=== PATIENT | female | born 1940 | race Caucasian/White ===

== ENCOUNTER 2016-09-06 15:19 | Outpatient (CLI) | payer MEDICARE, OTHER | END 2016-09-06 15:20 | disposition home or self-care (01) | DX: I77.6 Arteritis, unspecified (principal); G43.109 Migraine with aura, not intractable, without status migrainosus ==

== ENCOUNTER 2016-09-10 16:21 | Outpatient (CLI) | payer MEDICARE, OTHER | END 2016-09-10 16:22 | disposition home or self-care (01) | DX: G43.109 Migraine with aura, not intractable, without status migrainosus (principal); I77.6 Arteritis, unspecified ==

== ENCOUNTER 2017-03-11 08:00 | Outpatient (CLI) | payer MEDICARE, OTHER ==
[2017-03-11 19:20] LABS: BASOPHILS # (AUTO) 0.1 10^3/uL (0.0-0.1); BASOPHILS % (AUTO) 1.2 %; EOSINOPHILS # (AUTO) 0.3 10^3/uL (0.0-0.7); EOSINOPHILS % (AUTO) 3.5 %; HCT - HEMATOCRIT 39.9 % (37.0-47.0); HGB - HEMOGLOBIN 13.3 g/dL (12.0-16.0); LYMPHOCYTES # (AUTO) 2.6 10^3/uL (1.5-3.5); LYMPHOCYTES % (AUTO) 33.5 %; MEAN CORPUSCULAR HEMOGLOBIN 28.6 pg (27.0-31.0); MEAN CORPUSCULAR HGB CONC 33.4 g/dL (32.0-36.0); MEAN CORPUSCULAR VOLUME 85.6 fL (81.0-99.0); MEAN PLATELET VOLUME 9.4 fL (7.9-10.8); MONOCYTES # (AUTO) 0.6 10^3/uL (0.0-1.0); NEUTROPHILS # (AUTO) 4.2 10^3/uL (1.5-6.6); NEUTROPHILS % (AUTO) 53.8 %; RED BLOOD COUNT 4.66 10^6/uL (4.20-5.40); RED CELL DISTRIBUTION WIDTH 13.7 % (12.0-15.0); UNCORRECTED WHITE BLOOD COUNT 7.9 x10^3/uL; WHITE BLOOD COUNT 7.9 x10^3/uL (4.8-10.8)
[2017-03-11 19:30] LABS: ALBUMIN/GLOBULIN RATIO 1.6 (1.0-2.2); BILIRUBIN,TOTAL 0.5 mg/dL (0.2-1.0); BUN - BLOOD UREA NITROGEN 16 mg/dL (6-20); CALCIUM 9.2 mg/dL (8.5-10.3); CARBON DIOXIDE - CO2 24 mmol/L (21-32); CHLORIDE 103 mmol/L (101-111); CHOL/HDL RATIO 4.6 (<4.4); CHOLESTEROL 236 mg/dL; CREATININE 0.8 mg/dL (0.4-1.0); GFR - MDRD 70 (>89); GLUCOSE 108 mg/dL (70-100); HDL CHOLESTEROL 51 mg/dL; POTASSIUM 4.1 mmol/L (3.5-5.0); SODIUM 138 mmol/L (135-145); TOTAL PROTEIN 7.1 g/dL (6.7-8.2); TRIGLYCERIDES 157 mg/dL; VLDL CHOLESTEROL 31 mg/dL
== END 2017-03-11 08:01 | disposition home or self-care (01) ==
LOC: LAB.WCP 08:00
PROVIDERS: ATTEND Family Medicine
DX: E78.5 Hyperlipidemia, unspecified (principal); I10 Essential (primary) hypertension; E03.9 Hypothyroidism, unspecified
CPT/HCPCS: 36415; 80053; 80061; 84443; 85025

== ENCOUNTER 2017-08-25 08:00 | Outpatient (CLI) | payer MEDICARE, OTHER ==
[2017-08-25 19:29] LABS: BASOPHILS # (AUTO) 0.1 10^3/uL (0.0-0.1); BASOPHILS % (AUTO) 0.9 %; EOSINOPHILS # (AUTO) 0.2 10^3/uL (0.0-0.7); EOSINOPHILS % (AUTO) 2.9 %; HGB - HEMOGLOBIN 12.8 g/dL (12.0-16.0); LYMPHOCYTES # (AUTO) 2.1 10^3/uL (1.5-3.5); MEAN CORPUSCULAR HEMOGLOBIN 28.2 pg (27.0-31.0); MEAN CORPUSCULAR HGB CONC 32.4 g/dL (32.0-36.0); MEAN CORPUSCULAR VOLUME 86.9 fL (81.0-99.0); MONOCYTES # (AUTO) 0.6 10^3/uL (0.0-1.0); NEUTROPHILS # (AUTO) 4.2 10^3/uL (1.5-6.6); NEUTROPHILS % (AUTO) 58.2 %; PLT - PLATELET COUNT 305 10^3/uL (130-450); RED BLOOD COUNT 4.54 10^6/uL (4.20-5.40); RED CELL DISTRIBUTION WIDTH 13.6 % (12.0-15.0); WHITE BLOOD COUNT 7.1 x10^3/uL (4.8-10.8)
[2017-08-25 19:47] LABS: ALBUMIN 4.1 g/dL (3.2-5.5); ALBUMIN/GLOBULIN RATIO 1.5 (1.0-2.2); ALKALINE PHOSPHATASE 50 IU/L (42-121); ALT ALANINE AMINOTRANSFERASE 15 IU/L (10-60); AST ASPARTATE AMINOTRANSFERASE 16 IU/L (10-42); BILIRUBIN,TOTAL 0.6 mg/dL (0.2-1.0); BUN - BLOOD UREA NITROGEN 23 mg/dL (6-20); CARBON DIOXIDE - CO2 25 mmol/L (21-32); CHLORIDE 105 mmol/L (101-111); CHOL/HDL RATIO 5.4 (<4.4); CHOLESTEROL 279 mg/dL; GFR - MDRD 54 (>89); GLUCOSE 81 mg/dL (70-100); HDL CHOLESTEROL 52 mg/dL; LDL CHOLESTEROL,CALCULATED 183 mg/dL; LDL/HDL RATIO 3.5 (<4.4); SODIUM 138 mmol/L (135-145); TOTAL PROTEIN 6.9 g/dL (6.7-8.2); VLDL CHOLESTEROL 44 mg/dL
== END 2017-08-25 08:01 ==
LOC: LAB.WCP 08:00
PROVIDERS: ATTEND Family Medicine
DX: I10 Essential (primary) hypertension (principal); E78.5 Hyperlipidemia, unspecified; E03.9 Hypothyroidism, unspecified
CPT/HCPCS: 36415; 80053; 80061; 83721; 84443; 85025

== ENCOUNTER 2017-09-01 23:27 | Outpatient (CLI) | payer MEDICARE, OTHER | END 2017-09-01 23:28 | disposition home or self-care (01) | LOC: LAB.WCP 23:27 | PROVIDERS: ATTEND Family Medicine | DX: I73.9 Peripheral vascular disease, unspecified (principal) | CPT/HCPCS: 36415; 85651; 86140 ==

== ENCOUNTER 2017-09-04 16:26 | Outpatient (CLI) | payer MEDICARE, OTHER ==
--- NOTE | 2017-09-05 07:10 | MRI Report ---
EXAM: MRI BRAIN WITHOUT CONTRAST EXAM DATE: 09/04/2017 05:36 PM. CLINICAL HISTORY: Migraine headache. Over the past 2 years patient has experienced changes with visua l disturbances. COMPARISON: MRI brain 09/10/2016. TECHNIQUE: Multiplanar, multisequence T1-weighted and fluid-sensitive MR sequences of the brain were performed. Sequences optimized for routine evaluation. Other: None. IV Contrast: None. FINDINGS: Brain Volume: Normal for age. Parenchyma/Dura: No mass, acute infarct or hemorrhage. There are several scattered nonspecific T2/FLA IR hyperintense foci in the periventricular and deep white matter of both cerebral hemispheres. This appears stable compared to the prior MRI. This likely represents mild chronic microvascular change an d/or migraine phenomenon. Ventricles/Cisterns: No hydrocephalus. No abnormal extra-axial fluid collection or hemorrhage. Orbits: Symmetric and unremarkable. Sella Turcica: Unremarkable. Vasculature: Normal signal flow void is seen in the major arterial structures at the skull base. Sinuses: No acute appearing sinus disease. Bones: No focal pathologic appearing marrow signal changes. Other: No Chiari I malformation. IMPRESSION: 1. No acute intracranial abnormality. No significant change compared to previous MRI brain 09/10/2016. 2. Scattered nonspecific T2/FLAIR hyperintense foci in periventricular and deep white matter of both cerebral hemispheres appear stable. This could represent mild chronic microvascular change and/or magalys lacie phenomenon. 3. No intracranial mass lesion, mass effect, or hydrocephalus. [facility] Referring Provider Line: [phone] SITE ID: [id number]
== END 2017-09-04 16:27 | disposition home or self-care (01) ==
LOC: DI 16:26
PROVIDERS: ATTEND Family Medicine
DX: G43.909 Migraine, unspecified, not intractable, without status migrainosus (principal)
CPT/HCPCS: 70551

== ENCOUNTER 2017-12-01 08:00 | Outpatient (CLI) | payer MEDICARE, OTHER ==
[2017-12-01 19:07] LABS: ALBUMIN/GLOBULIN RATIO 1.3 (1.0-2.2); ALKALINE PHOSPHATASE 59 IU/L (42-121); ALT ALANINE AMINOTRANSFERASE 14 IU/L (10-60); AST ASPARTATE AMINOTRANSFERASE 19 IU/L (10-42); BILIRUBIN,TOTAL 0.7 mg/dL (0.2-1.0); BUN - BLOOD UREA NITROGEN 18 mg/dL (6-20); CALCIUM 9.2 mg/dL (8.5-10.3); CARBON DIOXIDE - CO2 25 mmol/L (21-32); CHLORIDE 106 mmol/L (101-111); CHOL/HDL RATIO 3.2 (<4.4); CHOLESTEROL 194 mg/dL; GFR - MDRD 54 (>89); GLUCOSE 93 mg/dL (70-100); HDL CHOLESTEROL 61 mg/dL; LDL CHOLESTEROL,CALCULATED 100 mg/dL; LDL/HDL RATIO 1.6 (<4.4); SODIUM 139 mmol/L (135-145); TOTAL PROTEIN 7.1 g/dL (6.7-8.2); VLDL CHOLESTEROL 33 mg/dL
== END 2017-12-01 08:01 | disposition home or self-care (01) ==
LOC: LAB.WCP 08:00
PROVIDERS: ATTEND Family Medicine
DX: E78.5 Hyperlipidemia, unspecified (principal)
CPT/HCPCS: 36415; 80053; 80061; 83721

== ENCOUNTER 2018-01-27 14:33 | Observation (INO) | payer MEDICARE, OTHER ==
[2018-01-27] MEDS ORDERED: IOPAMIDOL-300 100 ML VIAL ONE (15:09)
--- NOTE | 2018-01-27 15:09 | ED Physician Documentation ---
History of Present Illness - Stated complaint Stated Complaint: LT SIDED NUMBNESS - Chief complaint Chief Complaint: Neuro - Additonal information Additional information: hx from pt 77 f to ED with L sided SAHNI, lef face and arm numbness, L facial drop, dysarthria and LUE weakness onset 1345 sx are improving has similar sx last Friday and in the past and was dx TIA has been referred to neuro but cannot be seen until April sx are improving spont no blood thinners no hx a fib Review of Systems Constitutional: denies: Fever Eyes: denies: Decreased vision Ears: denies: Loss of hearing (chronic hearing loss L ear) Cardiac: denies: Chest pain / pressure Respiratory: denies: Dyspnea Neurologic: reports: Focal weakness, Numbness, Difficulty speaking Endocrine: denies: Easy bruising / bleeding Immunocompromised: denies: Immunocompromised PD PAST MEDICAL HISTORY - Past Medical History Cardiovascular: High cholesterol Respiratory: None Endocrine/Autoimmune: Other GI: Ulcers : None HEENT: Chronic vision loss Psych: None, Depression Musculoskeletal: None, Rheumatoid arthritis Derm: None - Past Surgical History Past Surgical History: Yes Ortho: Shoulder arthroplasty Cardiovascular: Vascular surgery - Present Medications Home Medications: Ambulatory Orders Medication Instructions Recorded Confirmed Citalopram [CeleXA] 10 mg PO DAILY 11/26/13 01/27/18 Aspirin 81 mg ORAL DAILY 11/28/13 01/27/18 Atorvastatin Calcium 10 mg PO QPM 01/27/18 01/27/18 Calcium Carbonate/Vitamin D3 1 tab PO DAILY 01/27/18 01/27/18 [Calcium 600 + Vit D 400 Tablet] Lactobacillus Acidophilus 1 cap PO DAILY 01/27/18 01/27/18 [Acidophilus Lactobacilli] Levothyroxine Sodium 88 mcg PO DAILY 01/27/18 01/27/18 Pantoprazole Sodium 40 mg PO DAILY 01/27/18 01/27/18 Propranolol HCl [Propranolol HCl 60 mg PO DAILY 01/27/18 01/27/18 ER] - Allergies Allergies/Adverse Reactions: Allergies Allergy/AdvReac Type Severity Reaction Status Date / Time Penicillins Allergy Severe Rash Verified 01/27/18 14:49 - Social History Does the pt smoke?: No Smoking Status: Never smoker Does the pt drink ETOH?: No Does the pt have substance abuse?: No - Immunizations Immunizations are current?: Yes - POLST Patient has POLST: No PD ED PE NORMAL - Vitals Vital signs reviewed: Yes - General General: Alert and oriented X 3 - HEENT HEENT: Atraumatic, PERRL - Neck Neck: Supple, no meningeal sign, No bruit - Cardiac Cardiac: RRR, No murmur - Respiratory Respiratory: No respiratory distress - Neuro Neuro: Alert and oriented X 3, saw maker 2-12 intact, No sensory deficit (resolved bow ), Normal speech (nl to me but pt still flees it is a little difficult). No: No motor deficit (slight L relationship specialist weakness) Eye Opening: Spontaneous Motor: Obeys Commands Verbal: Oriented GCS Score: 15 Results - Vitals Vitals: Vital Signs - 24 hr 01/27/18 01/27/18 01/27/18 14:43 16:40 18:52 Temperature 36.5 C Heart Rate 56 L 54 L 64 Respiratory 16 11 L 15 Rate Blood Pressure 144/70 H 167/55 H 114/79 O2 Saturation 97 97 96 01/27/18 19:23 Temperature Heart Rate 61 Respiratory 17 Rate Blood Pressure O2 Saturation 95 Oxygen O2 Source Room air - EKG (time done) 1558 Rate: Rate (enter#) Rhythm: NSR Intervals: Normal PA Ischemia: Q waves (inferior) - Labs Labs: Laboratory Tests 01/27/18 01/27/18 01/27/18 15:06 15:06 15:06 WBC 8.4 RBC 4.42 Hgb 13.0 Hct 37.5 MCV 84.9 MCH 29.4 MCHC 34.7 RDW 13.6 Plt Count 339 MPV 8.6 Neut # (Auto) 4.9 Lymph # (Auto) 2.5 Labette # (Auto) 0.6 Eos # (Auto) 0.2 Baso # (Auto) 0.1 Absolute Nucleated RBC 0.00 Nucleated RBC % 0.0 PT 12.3 INR 1.1 Sodium 138 Potassium 4.1 Chloride 105 Carbon Dioxide 25 Anion Gap 8.0 BUN 22 H Creatinine 1.0 Estimated GFR (MDRD) 54 L Glucose 91 POC Whole Bld Glucose Calcium 9.0 Total Bilirubin 0.7 AST 18 ALT 14 Alkaline Phosphatase 68 Total Protein 7.4 Albumin 4.2 Globulin 3.2 Albumin/Globulin Ratio 1.3 Lipase 34 01/27/18 16:07 WBC RBC Hgb Hct MCV MCH MCHC RDW Plt Count MPV Neut # (Auto) Lymph # (Auto) Labette # (Auto) Eos # (Auto) Baso # (Auto) Absolute Nucleated RBC Nucleated RBC % PT INR Sodium Potassium Chloride Carbon Dioxide Anion Gap BUN Creatinine Estimated GFR (MDRD) Glucose POC Whole Bld Glucose 83 Calcium Total Bilirubin AST ALT Alkaline Phosphatase Total Protein Albumin Globulin Albumin/Globulin Ratio Lipase - Rads (name of study) CTH Radiology: See rad report (no acute, no bleed or mass) CTA head Radiology: See rad report CTA neck Radiology: See rad report (1) atherosclerotic plaque R carotis < 50% 2) 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, a left common carotid to axillary artery bypass is seen with poor contrast in the stent - per verbal discussion with readining radiologist this does not compromise cerebral blood flow but he recommends checking LUE pulses 3) a stent is seen spanning right subclavian artery after the R vertebral takeoff, there is contrast in the stent) PD MEDICAL DECISION MAKING - ED course ED course: in the window but not a TPA candidate 2/2 improving sx sig and recurring TIA ABCD2 score 6 - merits admit for serial neuro exams echo MRI etc req ELLA page hospitalist at 1720 - spoke to hospitalist at 1750 - she asks that i speak to neuro as well which i agreed to do - paged neuro at 1800 - [address] Puente from [facility] called back - we reviewed the pts sx and prior vascular dz and surgeries - i read him the CTA head and neck report word for word - he advises that based on hx, exam, resolving sx, patent large vessels seen on CTAs today he does not think the pt is in need of a procedure or test available only at a tertiary care center and he feels the pt can be managed at [facility] - specifically he recommends echo, , lipid panel hgb A1C, consider dual tx with plavix 75 and asa 81 and subsequently transition to monotreatement with plavix, consider testing for being an aspirin responder ELLA called hospitalist Dr Preston while I had neuro on the liner to ask if she wanted to talk to neuro herself to ask any further question about dispo or work up or treatment plan and she did not need to - just wanted to be sure that neuro was aware of pt and he extensive vascular issues and that there recommendations were noted serial neuro exams in the ED = no recurrent sx also, pt states she known about the L axillary bypass being occluded, she has a poor radial pulse but + cap refill - per pt now new - Sepsis Event Vital Signs: Vital Signs - 24 hr 01/27/18 01/27/18 01/27/18 14:43 16:40 18:52 Temperature 36.5 C Heart Rate 56 L 54 L 64 Respiratory 16 11 L 15 Rate Blood Pressure 144/70 H 167/55 H 114/79 O2 Saturation 97 97 96 01/27/18 19:23 Temperature Heart Rate 61 Respiratory 17 Rate Blood Pressure O2 Saturation 95 Oxygen O2 Source Room air Departure - Departure Disposition: ED Place in Observation Clinical Impression: TIA (transient ischemic attack) Qualifiers: Transient cerebral ischemia type: unspecified Qualified Code(s): G45.9 - Transient cerebral ischemic attack, unspecified Condition: Fair NIHSS - Time Time: 15:12 - Level of Consciousness Level of consciousness: (0) Alert, Keenly responsive LOC Questions: (0) Answers both Q's correct LOC Commands: (0) Performs both correctly - Gaze Best Gaze: (0) Normal - Visual Visual: (0) No loss - Facial Palsy Facial Palsy: (0) Normal, symmetrical movement - Motor Arms (both separate) Motor Arm (right): (0) No drift (slight relationship specialist weakness but no drip) Motor Arm (left): (0) No drift - Motor Legs (both separate) Motor Leg (right): (0) No drift Motor Leg (left): (0) No drift - Limb Ataxia Limb Ataxia: (0) Absent - Sensory Sensory: (0) Normal - Best Language Best Language: (0) No aphasia - Dysarthria Dysarthria: (0) Normal - Extinction and Inattention (formally neg Extinction and inattention: (0) No abnormality - Total Score/Results Total Score/Result: 0
[2018-01-27 15:13] LABS: BASOPHILS # (AUTO) 0.1 10^3/uL (0.0-0.1); BASOPHILS % (AUTO) 1.1 %; EOSINOPHILS # (AUTO) 0.2 10^3/uL (0.0-0.7); EOSINOPHILS % (AUTO) 2.7 %; LYMPHOCYTES # (AUTO) 2.5 10^3/uL (1.5-3.5); LYMPHOCYTES % (AUTO) 29.5 %; MEAN CORPUSCULAR HEMOGLOBIN 29.4 pg (27.0-31.0); MEAN CORPUSCULAR HGB CONC 34.7 g/dL (32.0-36.0); MEAN CORPUSCULAR VOLUME 84.9 fL (81.0-99.0); MEAN PLATELET VOLUME 8.6 fL (7.9-10.8); MONOCYTES # (AUTO) 0.6 10^3/uL (0.0-1.0); MONOCYTES % (AUTO) 7.7 %; NEUTROPHILS # (AUTO) 4.9 10^3/uL (1.5-6.6); PLT - PLATELET COUNT 339 10^3/uL (130-450); RED BLOOD COUNT 4.42 10^6/uL (4.20-5.40); RED CELL DISTRIBUTION WIDTH 13.6 % (12.0-15.0); WHITE BLOOD COUNT 8.4 x10^3/uL (4.8-10.8)
[2018-01-27 15:20] LABS: INR 1.1 (0.8-1.2); PT - PROTHROMBIN TIME 12.3 secs (9.9-12.6)
[2018-01-27 15:24] LABS: ALBUMIN 4.2 g/dL (3.2-5.5); ALBUMIN/GLOBULIN RATIO 1.3 (1.0-2.2); BILIRUBIN,TOTAL 0.7 mg/dL (0.2-1.0); TOTAL PROTEIN 7.4 g/dL (6.7-8.2)
--- NOTE | 2018-01-27 15:33 | CT Report ---
Reason: stroke sx Procedure Date: 01/27/2018 Accession Number: [id number] / [id number] Procedure: CT - Head W/O Stroke Protocol CPT Code: FULL RESULT: EXAM: CT HEAD EXAM DATE: 01/27/2018 03:19 PM. CLINICAL HISTORY: Left sided numbness at 13:15 COMPARISON: HEAD W/O STROKE PROTOCOL 11/28/2013. TECHNIQUE: Multiaxial CT images were obtained from the foramen magnum to the vertex. Reformats: Coronal IV contrast: None. In accordance with CT protocol optimization, one or more of the following dose reduction techniques were utilized for this exam: automated exposure control, adjustment of mA and/or KV based on patient size, or use of iterative reconstructive technique. FINDINGS: Parenchyma: No intraparenchymal hemorrhage. No evidence of mass, midline shift, or CT findings of acute or subacute infarction. Molina-white differentiation is distinct. Mild bilateral periventricular and left anterior limb internal capsule chronic microangiopathy again noted. Extraaxial Spaces: Normal for age. No subdural or epidural collections identified. Ventricles: Within normal limits. Sinuses and Orbits: Imaged paranasal sinuses, orbits, and mastoids show no significant abnormality. Bones: No evidence of fracture or calvarial defect. IMPRESSION: Stable exam with mild chronic microangiopathy. No acute intracranial abnormalities seen. [facility] The call report notification system was initiated by Dr. Virginia Espinoza at 15:26 hrs on 01/27/18. The above findings were discussed with Lila Vera by Dr. Virginia Espinoza at 15:32 hrs on 01/27/18.
[2018-01-27] MEDS ORDERED: IOPAMIDOL-300 100 ML VIAL IVP ONE (15:48)
--- NOTE | 2018-01-27 16:34 | CT Report ---
Reason: stroke sx Procedure Date: 01/27/2018 Accession Number: [id number] / [id number] Procedure: CT - Neck Angio CPT Code: FULL RESULT: EXAM: CT ANGIOGRAM HEAD AND NECK. CT SCAN HEAD WITH CONTRAST. EXAM DATE:01/27/2018 03:29 PM. CLINICAL HISTORY:77 year-old with left-sided numbness COMPARISON:Noncontrast CT head 01/27/2018; MR brain 09/04/2017. TECHNIQUE: Routine axial helical CTA imaging was performed from the aortic arch through the [place] of [place]. Routine axial CT imaging of the head was performed following contrast administration. Reconstructions: Routine multiplanar 3D MIP reconstructions. IV contrast: 80 cc Isovue 300. NASCET Criteria are used for stenosis measurements. In accordance with CT protocol optimization, one or more of the following dose reduction techniques were utilized for this exam: automated exposure control, adjustment of mA and/or KV based on patient size, or use of iterative reconstructive technique. FINDINGS: CT ANGIOGRAM HEAD AND NECK: Minimal other scattered calcifications of the aortic arch. Normal three-vessel takeoff. 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 A left common carotid to axillary artery bypass is seen poor contrast opacification seen within the bypass graft. A stent is seen spanning the right subclavian artery after the right vertebral artery takeoff. RIGHT: Common Carotid Artery: Patent without significant stenosis. Carotid Bulb: There is moderate to severe atherosclerotic plaque at the bifurcation and siphon. Stenosis at the bifurcation by NASCET criteria: Less than 50% stenosis. Internal Carotid Artery: No evidence of dissection or significant stenosis of the cervical ICA. Vascular calcifications of the cavernous ICA segments with no significant stenosis.. No evidence of aneurysm along the intracranial ICA. External Carotid Artery: Unremarkable. Vertebral Artery: Patent without significant stenosis. No evidence of dissection. No aneurysm. Anterior Cerebral Artery: Patent without significant stenosis, aneurysm, or vascular malformation. Middle Cerebral Artery: Patent without significant stenosis, aneurysm, or vascular malformation. Posterior Cerebral Artery: Patent without significant stenosis, aneurysm, or vascular malformation. Posterior Communicating Artery: Patent. No aneurysm. LEFT: Common Carotid Artery: Patent without significant stenosis. Carotid Bulb: There is moderate to severe atherosclerotic plaque at the bifurcation and siphon. Stenosis at the bifurcation by NASCET criteria: No significant stenosis. Internal Carotid Artery: No evidence of dissection or significant stenosis of the cervical ICA. Vascular calcifications of the cavernous ICA segments with no significant stenosis. No evidence of aneurysm along the intracranial ICA. External Carotid Artery: Unremarkable. Vertebral Artery: The V1 through V3 segments appear normal. There is irregularity of the intradural V4 segment with no high-grade stenosis seen. No aneurysm. Anterior Cerebral Artery: Patent without significant stenosis, aneurysm, or vascular malformation. Middle Cerebral Artery: Patent without significant stenosis, aneurysm, or vascular malformation. Posterior Cerebral Artery: Patent without significant stenosis, aneurysm, or vascular malformation. Posterior Communicating Artery: Patent. No aneurysm. CENTRAL: Anterior Communicating Artery: Patent. No aneurysm. Basilar Artery: Patent without significant stenosis. No aneurysm. DURAL VENOUS SINUSES AND MAJOR CENTRAL VEINS: Patent. OTHER: The visualized pharynx and larynx appear normal. Major salivary glands appear normal. Thyroid gland appears normal. No cervical lymphadenopathy or necrotic lymph nodes seen. Soft tissues of the neck appear normal. Visualized lung apices are clear. No acute fracture or traumatic subluxation of the cervical spine. Multilevel degenerative changes. No suspicious osseous lesion. POST-CONTRAST HEAD: Parenchyma: No evidence of acute infarct, hemorrhage, or mass lesion. Brain parenchyma demonstrates normal appearance. No abnormal enhancement. Extra-axial Spaces: Normal. No extra-axial fluid collections or hemorrhage. Ventricles: Ventricles Orbits and Sinuses: Orbits are normal. Paranasal sinuses and mastoid air cells are clear. Extracranial Soft Tissues and Bones: Extracranial soft tissues are unremarkable. No fractures. Other: Minimal vascular calcifications are cavernous ICA segments. IMPRESSION: CT SCAN HEAD: 1. No definite acute infarct seen. If there is clinical concern for acute stroke or symptoms persist an MR brain can be considered to evaluate for small or subtle pathology. ASPECTS 10R/10L 2. No acute intracranial hemorrhage, mass, hydrocephalus, midline shift, or abnormal postcontrast enhancement seen. CT ANGIOGRAM NECK: 1. There is moderate atherosclerotic plaque involving the right carotid siphon and bifurcation with less than 50% stenosis. 2. 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 A left common carotid to axillary artery bypass is seen with poor contrast opacification seen within the bypass graft. 3. A stent is seen spanning the right subclavian artery after the right vertebral artery takeoff. There contrast opacification seen within the stent. CT ANGIOGRAM HEAD: 1. Normal CTA of the head. No aneurysm. No significant stenosis. [facility] The above findings were discussed with Lila Vera by Dr. David Bravo at 16:33 hrs on 01/27/18.
[2018-01-27] MEDS ORDERED: ACETAMINOPHEN 325 MG TABLET PO PRN (19:56)
[2018-01-27] MEDS ORDERED: oxyCODONE 5 MG TABLET PO PRN (19:56)
[2018-01-27] MEDS ORDERED: SODIUM CHLORIDE FLUSH 0.9% 10 ML SYRINGE IVP PRN (19:56)
[2018-01-27] MEDS ORDERED: ONDANSETRON 4 MG/2 ML VIAL IVP PRN (19:56)
[2018-01-27] MEDS ORDERED: ONDANSETRON ODT 4 MG TABLET TL PRN (19:56)
[2018-01-27] MEDS: CLOPIDOGREL 75 MG TABLET PO SCH (20:51)
[2018-01-27] MEDS ORDERED: ATORVASTATIN 10 MG TABLET PO SCH (21:00)
--- NOTE | 2018-01-27 22:13 | HISTORY & PHYSICAL EXAMINATION ---
Chief Complaint - Chief Complaint Chief Complaint: left arm and left face numbness for 30-45 minutes History of Present Illness - Admitted From Admitted From:: Home/emergency room - History Obtained From Records Reviewed: Antonino History obtained from: Patient and [facility] and Dr. Chavez Exam Limitations: Word finding problems - History of Present Illness HPI Comment/Other: she is a luciana 77-year-old female who had giant cell arteritis and Takayasu's arteritis approximately 2005. She was treated with prednisone, CellCept, blood transfusions, plasmapheresis and was maintained on prednisone and CellCept for many years. Manifestations of her disease included amaurosis fugax, aphasia, and off and on left sided body weakness. Treatment during this time included a subclavian stent on the right, and carotid bypass surgery on the left. She was admitted twice in April 2013. The first time she was admitted as a TIA with right-sided weakness and aphasia. The second time was with chest pain and shortness of breath. She says that she has not had any more neurologic symptoms other than migraine headaches since 2012. She used to see a PA named Deejay Lebron in the [place] [facility]. He then went to [place] and she followed him there. She did not feel that he was paying enough attention. And did not seem quite to know what to do with her migraine headaches. So when he moved back to [place] for [place] she did not see him anymore. She has been referred to Osman Chen and was to see him in October of this year. She and her were late to that visit and when she showed up they had canceled her appointment. Her next available appointment is April 2018. She had recurrence of the same left body weakness and aphasia on January 23. It went away after about 30 minutes and she told herself to "relax" and it went away. She then had the symptoms again today. This time she decided to call her physician. Her physician asked to go to the emergency room. Unfortunately , in the middle of this episode, she chose to drive herself home. She had left arm weakness, left facial numbness, left leg weakness. She denied any visual changes. By the time she was brought to the emergency room, most of it had gone away. She still had a little bit of left arm numbness and left facial numbness. Right now she just feels like she is having problems finding her words. She was seen by Dr. Chavez and blood pressure was 144/70. Physical examination was unremarkable. Head and neck CT angiogram had no definite acute infarct seen. No acute intracranial hemorrhage, mass, hydrocephalus, midline shift. She had moderate atherosclerotic plaquing involving the right carotid siphon and bifurcation with less than 50% stenosis. There was abrupt occlusion of the proximal mid subclavian artery. A left common carotid to axillary artery bypass is seen with poor contrast opacification seen within the bypass graft. A stent is seen spanning the right subclavian artery after the right vertebral artery takeoff. She had a normal angiogram of the head circulation. [place] [facility]uc-stroke was consulted. She is not a candidate for TPA. Dr. Chavez was instructed to bring the patient in observation. Do an echo and MRI if possible. Do dual antiplatelet therapy with aspirin and Plavix. Transition her to Plavix only. If she has recurrence of symptoms to recall them because she may be a candidate for TPA. History - Past Medical History Cardiovascular: reports: Hypertension, High cholesterol Respiratory: reports: None Neuro: reports: Migraines (With aura. Increasing in frequency and duration over the last 2 years.) Endocrine/Autoimmune: reports: Other (Giant cell arteritis/Takayasu's arteritis [id number]) GI: reports: GERD, Ulcers [employer]ET[employer]GER: reports: Other () : reports: None HEENT: reports: Chronic vision loss, Chronic hearing loss Psych: reports: Depression Musculoskeletal: reports: Other (RA reported by ER MD but patient denies.) Derm: reports: None MRSA Hx?: No Other Past Medical History: giant cell arteritis - Past Surgical History General: reports: Colonoscopy (In the last year) Ortho: reports: Shoulder arthroplasty Cardiovascular: reports: Vascular surgery - Family & Social History Family History Comment/Other: Mom at age 86 of heart attack. Dad at age 89 of old age. One brother has had a heart attack. One sister has had an abdominal cancer in the last year and is dwindling at the age of 81. HER-2 children are completely healthy Living arrangement: At home Living Situation: With spouse/s.o. Social History Notes: She was born in [facility]. She an [place] and came to the [facility] 30 years ago. 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 They moved to the [place] 15 years ago. She and her live in their own home. She regards herself is completely independent and still pays the bills, drives a car, cleans house. She never smoked. Rarely drinks alcohol. Has no history of substance abuse. She denies use of cannabis, cocaine, heroin, LSD, methamphetamines. - Substance History Use: Uses substance without health or social issues: NONE Abuse: Recurrent use of substance despite neg consequences: NONE Dependence: Experiences withdrawal or developed tolerances: NONE - POLST Patient has POLST: No POLST Status: Full Code (She would like to be a full code. However, if she has significant disability such as a massive stroke with chronic residual resulting in dependence for her activities of daily living, she would like to be changed to a DO NOT RESUSCITATE.) Meds/Allgy - Home Medications Home Medications: Ambulatory Orders Medication Instructions Recorded Confirmed Citalopram [CeleXA] 10 mg PO DAILY 11/26/13 01/27/18 Aspirin 81 mg ORAL DAILY 11/28/13 01/27/18 Atorvastatin Calcium 10 mg PO QPM 01/27/18 01/27/18 Calcium Carbonate/Vitamin D3 1 tab PO DAILY 01/27/18 01/27/18 [Calcium 600 + Vit D 400 Tablet] Lactobacillus Acidophilus 1 cap PO DAILY 01/27/18 01/27/18 [Acidophilus Lactobacilli] Levothyroxine Sodium 88 mcg PO DAILY 01/27/18 01/27/18 Pantoprazole Sodium 40 mg PO DAILY 01/27/18 01/27/18 Propranolol HCl [Propranolol HCl 60 mg PO DAILY 01/27/18 01/27/18 ER] - Allergies Allergies/Adverse Reactions: Allergies Allergy/AdvReac Type Severity Reaction Status Date / Time Penicillins Allergy Severe Rash Verified 01/27/18 14:49 Review of Systems - Constitutional Constitutional: denies: Fatigue, Fever, Chills, Malaise, Weakness, Poor appetite - Eyes Eyes: reports: Vision loss (With migraines and it is temporary). denies: Pain, Irritation, Amaurosis, Blurred vision - Ears, Nose & Throat Ears, Nose & Throat: reports: Hearing loss. denies: Ear pain, Hearing aids, Tinnitus, Vertigo, Nasal obstruction, Nasal congestion, Postnasal drainage - Cardiovascular Cariovascular: denies: Irregular heart rate, Palpitations, Chest pain, Edema, Lightheadedness, Syncope, Exertional dyspnea - Respiratory Respiratory: denies: Cough, Sputum production, Wheezing, Snoring, Orthopnea, SOB with exertion - Gastrointestinal Gastrointestinal: reports: Reflux/heartburn (occasionally and uses PPI). denies : Abdominal pain, Abdominal distention, Constipation, Diarrhea, Change in bowel habits, Rectal bleeding, Vomiting - Genitourinary Genitourinary: denies: Dysuria, Frequency, Urgency, Hematuria, Nocturia - Musculoskeletal Musculoskeletal: reports: Limited range of motion (Left arm. That is chronic because of limited blood supply. Simple things such as brushing her hair are almost impossible to do.). denies: Muscle pain, Back pain, Muscle aches, Stiffness - Integumentary Integumentary: denies: Rash, Pruritis, Lesions - Neurological Neurological: reports: Focal weakness (Chronic and in her left arm), Headache ( With her migraines but none right now), Memory problems (Currently ongoing right now. She has a lot of word finding deficits tonight. For instance she cannot remember how to say what she did for a living). denies: General weakness - Psychiatric Psychiatric: reports: Depression (Controlled with medication). denies: Anxiety , Suicidal, Delusions, Hallucinations - Endocrine Endocrine: denies: Polyuria, Polydypsia, Polyphagia - Hematologic/Lymphatic Hematologic/Lymphatic: reports: Bruising. denies: Anemia, Petechiae Exam - Vital Signs Reviewed Vital Signs: Yes Vital Signs: Vital Signs x48h Temp Pulse Pulse Resp BP BP Pulse Ox 01/27/18 20:41 36.7 C 58 L 18 147/53 H 96 01/27/18 20:14 56 L 17 145/62 H 96 - Physical Exam General Appearance: positive: No acute distress, Alert, Other (Luciana elderly female who looks her stated age, and is awake, alert and able to converse lucidly except for word finding problems) Eyes Bilateral: positive: PERRL, EOMI, Conjunctivae nml ENT: positive: Pharynx nml Neck: positive: No JVD, Stiff neck, Carotid bruit Respiratory: positive: Chest non-tender, No respiratory distress. negative: Wheezes, Rales, Rhonchi Cardiovascular: positive: Regular rate & rhythm, Systolic murmur. negative: Gallop/S4, Friction rub Peripheral Pulses: positive: 1+ Abdomen: positive: Non-tender, No organomegaly, Nml bowel sounds, No distention. negative: Guarding, Rebound Skin: positive: Warm, Dry. negative: Diaphoresis Extremities: positive: Non-tender, Full ROM, Nml appearance Neurologic/Psychiatric: positive: Oriented x3, CN's nml (2-12), Motor nml, Weakness (In comparison to her right arm, her left arm is more difficult to elevate actively. She says that is chronic and because of her bypass surgery), Other (She is forgetting words. She cannot remember that she owned a [employer] and had to wait several minutes before she could remember it. She knew that she had a procedure for her bowels but could not remember what it was until ascitic colonoscopy and then she was able to remember the word. She was unable to name the word neurologist.). negative: Facial droop, Slurred/ abnml speech, Depressed mood/affect Conclusion/Plan - Problem List (1) TIA (transient ischemic attack) Conclusion/Plan: Resolved at this time. Plan: Place in observation for MRI and echocardiogram.We will get records from [facility] to see what type of stenting and bypass procedures she had to make sure that we can do the MRI If symptoms recur, to recall [place] tele-stroke because she may be a candidate for TPA Every 4 hours neuro checks Start Plavix as well as aspirin Already on a statin and already on blood pressure drugs. A copy of this history and physical will be sent to Osman stahl MD, so that she may be moved to an appointment that is sooner if that is appropriate. Qualifiers: Transient cerebral ischemia type: unspecified Qualified Code(s): G45.9 - Transient cerebral ischemic attack, unspecified (2) Hypertension, benign essential, goal below 140/90 Conclusion/Plan: At this time, she is mildly hypertensive. I explained to her that part of risk factor modification is to have a blood pressure is close to 120/70 as possible. She knows that her blood pressure gets higher the more anxious she is. At this time allow permissive hypertension in the face of her TIA. Resume her usual medication but I will not be aggressive about lowering it tonight. (3) Hyperlipidemia Conclusion/Plan: Resume statin Qualifiers: Hyperlipidemia type: pure hypercholesterolemia Qualified Code(s): E78.00 - Pure hypercholesterolemia, unspecified; E78.0 - Pure hypercholesterolemia (4) History of peptic ulcer disease Conclusion/Plan: Usually nonsteroidal therapy would be contraindicated in the patient like this. But she has been on aspirin because of her previous vascular history. She will now be started on Plavix. She will be at risk for GI bleed. Usual risk with just nonsteroidal therapy is 4-6%. But with a previous history of peptic ulcer disease her wrist may be greater. Make sure she stays on her proton pump inhibitor. No other nonsteroidal therapy. Transition off aspirin when appropriate and to stay on Plavix. - Lab Results Fish Bones: 01/27/18 15:06 01/27/18 15:06 - Diagnostic Imaging Results Diagnostic Imaging Results: positive: Final report reviewed - EKG Results EKG Interpreted Independently: No EKG Comparison: Old EKG unavailable EKG Findings: Normal sinus rhythm with a Q-wave in the inferior leads and a J-point elevation in V6 Core Measures - Anticipated LOS I expect patient to be DC'd or transferred within 96 hours.: Yes - DVT/VTE - Prophylaxis VTE/DVT Device ordered at admit?: No VTE/DVT Prophylaxis med ordered at admit?: Yes
[2018-01-28] MEDS: SODIUM CHLORIDE FLUSH 0.9% 10 ML SYRINGE IVP SCH ×2 (06:22→08:24)
[2018-01-28] MEDS ORDERED: LEVOTHYROXINE 88 MCG TABLET PO SCH (07:00)
[2018-01-28] MEDS: CLOPIDOGREL 75 MG TABLET PO SCH (08:21)
[2018-01-28] MEDS ORDERED: ASPIRIN CHEW 81 MG TABLET PO SCH (09:00)
[2018-01-28] MEDS ORDERED: POLYETHYLENE GLYCOL 3350 17 GM PACKET PO SCH (09:00)
[2018-01-28] MEDS ORDERED: CITALOPRAM 10 MG TABLET PO SCH (09:00)
[2018-01-28] MEDS ORDERED: PANTOPRAZOLE 40 MG TABLET PO SCH (09:00)
[2018-01-28] MEDS ORDERED: PROPRANOLOL ER 60 MG CAPSULE PO SCH (09:00)
--- NOTE | 2018-01-28 16:13 | MRI Report ---
Reason: recurrent TIAs, compare to 09/17 please Procedure Date: 01/28/2018 Accession Number: [id number] / [id number] Procedure: MRI - Brain W/O CPT Code: FULL RESULT: EXAM: MRI BRAIN WITHOUT CONTRAST. EXAM DATE: 01/28/2018 03:45 PM. CLINICAL HISTORY: Transient ischemic attach. COMPARISON: 09/04/2017. TECHNIQUE: Multiplanar, multisequence T1-weighted and fluid-sensitive MR sequences of the brain were performed. Sequences optimized for routine evaluation. Other: None. IV Contrast: None. FINDINGS: No restricted diffusion to suggest acute or recent ischemic infarct. Again seen are findings of tiny chronic posterior cerebellar infarcts. No evidence for cerebral hemorrhage, mass effect, midline shift or abnormal subdural fluid collection. Stable brain volume. Grossly stable mild chronic appearing white matter disease likely from microangiopathy. No acute appearing sinus or mastoid disease. No focal marrow edema in the skull. IMPRESSION: Compared to the prior study, no evidence for new or acute intracranial abnormality. RADIA
--- NOTE | 2018-01-28 16:58 | Discharge Plan ---
Discharge Plan Disposition: Home, Self Care Condition: Stable Prescriptions: Clopidogrel [Plavix] 75 mg PO DAILY #30 tablet Diet: Cardiac Activity Restrictions: Activity as Tolerated Additional Instructions or Follow Up instructions: Resume all your pre-hospital medications. There is a new prescription recommended by Neurology, Plavix, that was started while you were here and has been prescribed for you to take daily. See the Neurologist as previously planned, move up the appointment if possible. See your PCP in follow-up in 1-2 weeks. Come back to the ER if you have new or worsening symptoms. No Smoking: If you smoke, Please STOP! Call for help. Follow-up with: Starla Agustin MD [Primary Care Provider] -
[2018-01-28 17:41] VITALS: BP 139/54
--- NOTE | 2018-02-02 03:59 | DISCHARGE SUMMARY ---
Physician: Prabha Guajardo MD DATE OF ADMISSION: 01/27/2018 DATE OF DISCHARGE: 01/28/2018 HISTORY OF PRESENT ILLNESS: This is a 77-year-old white female who had a history of giant cell arteritis and Takayasu arteritis approximately 12 years ago, treated with prednisone, CellCept, plasmapheresis and blood transfusions. All of these have been weaned and discontinued. The patient has a history of hypertension and hyperlipidemia, prior stroke with left-sided body weakness. She has peripheral vascular disease with a subclavian stent on the right and carotid bypass surgery on the left. The patient has migraines, GERD, depression , arthroplasty. The patient was admitted with complaint of left arm and left face numbness that lasted for 30-45 minutes. In the ER, there was still residual left arm numbness and left face numbness, and there was a sensation of problem finding words. The patient had imaging done in the emergency room, which revealed that there was no acute intracranial hemorrhage, mass, hydrocephalus, or midline shift. 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 This, however, was known previously. A left common carotid to axillary artery bypass was seen but poorly opacified. A stent is seen spanning the right subclavian artery after the right vertebral artery takeoff, and her brain had a normal CTA. The ER doctor spoke to the [place] TeleStroke doctor. She was not a candidate for tPA. They recommended placing the patient in Observation and adding Plavix to her aspirin, plus evaluating for a clot. HOSPITAL COURSE/DISCHARGE DIAGNOSES 1. Transient ischemic attack. Plavix was added and continued at discharge. The patient had an Echo performed that showed mild LVH, normal LVEF of 70%-75%, grade 2 diastolic dysfunction, normal RV size and function, mild to moderate increase in LA and RA sizes, normal PA pressure of 34 mmHg, and no intracardiac shunt or intracardiac clot seen. The patient underwent a brain MRI which showed no evidence of new or acute intracranial abnormality. She was discharged on her same medications with the addition of Plavix. 2. Hypertension. The patient was maintained on her blood pressure medicines while here, and BP was controlled. 3. Elevated cholesterol. The patient was kept on her statin medication. 4. Peripheral vascular disease. The imaging studies showed no new areas of stenosis. She needs continued management for control of risk factors such as blood pressure and cholesterol. ALLERGIES: PENICILLIN. DISCHARGE MEDICATIONS 1. Propranolol ER 60 mg daily (for migraines). 2. Pantoprazole 40 mg daily. 3. Levothyroxine 88 mcg daily. 4. Baby aspirin daily. 5. Plavix 75 mg daily (was added). 6. Celexa 10 mg daily. 7. Calcium carbonate with vitamin D3 daily. 8. Lactobacillus daily. 9. Lipitor 10 mg every evening. CONDITION ON DISCHARGE: Stable. PHYSICAL EXAMINATION VITAL SIGNS: Blood pressure 139/54, pulse of 56 in sinus rhythm, afebrile, room air saturation 96%. HEENT: Unremarkable. NECK: Without JVD or carotid bruits. CHEST: Clear. HEART: Heart tones normal. No murmur. ABDOMEN: Soft. No bruit. Legs Without edema. NEUROLOGIC: Grossly intact. FOLLOWUP: The patient is to be seeing a new neurologist (Dr. Osman Flood), and she should see her PCP in the next 1-2 weeks. CODE STATUS: FULL CODE; however, the patient voiced preference that if she has a major stroke and becomes very debilitated, she would like to be made a DNR. Time required to complete the entire discharge, chart review, medication order, patient education, dictation: 30 minutes. cc: Starla Agustin MD TD: 02/01/2018 21:04 MTDD
== END 2018-01-28 17:50 | disposition home or self-care (01) ==
LOC: ED 14:33 → OBS 19:56
PROVIDERS: ADMIT Specialist; ATTEND Specialist
DX: G45.9 Transient cerebral ischemic attack, unspecified (principal); I10 Essential (primary) hypertension; E78.00 Pure hypercholesterolemia, unspecified; E78.5 Hyperlipidemia, unspecified; I70.208 Unspecified atherosclerosis of native arteries of extremities, other extremity; I70.308 Unspecified atherosclerosis of unspecified type of bypass graft(s) of the extremities, other extremity; H54.7 Unspecified visual loss; H91.90 Unspecified hearing loss, unspecified ear; F32.9 Major depressive disorder, single episode, unspecified; G31.84 Mild cognitive impairment of uncertain or unknown etiology; R29.700 NIHSS score 0; Z79.82 Long term (current) use of aspirin; Z86.79 Personal history of other diseases of the circulatory system
CPT/HCPCS: 70450; 70496; 70498; 70551; 80053; 83690; 85025; 85610; 93005; 93306; 99284; 99285; A9270; G0378; Q9967

== ENCOUNTER 2018-07-02 08:00 | Outpatient (CLI) | payer MEDICARE, OTHER ==
[2018-07-02 12:47] LABS: BASOPHILS # (AUTO) 0.1 10^3/uL (0.0-0.1); BASOPHILS % (AUTO) 1.2 %; EOSINOPHILS # (AUTO) 0.2 10^3/uL (0.0-0.7); EOSINOPHILS % (AUTO) 3.4 %; HGB - HEMOGLOBIN 12.7 g/dL (12.0-16.0); LYMPHOCYTES # (AUTO) 1.7 10^3/uL (1.5-3.5); LYMPHOCYTES % (AUTO) 24.8 %; MEAN CORPUSCULAR HEMOGLOBIN 29.3 pg (27.0-31.0); MEAN CORPUSCULAR HGB CONC 34.3 g/dL (32.0-36.0); MEAN CORPUSCULAR VOLUME 85.3 fL (81.0-99.0); MEAN PLATELET VOLUME 8.9 fL (7.9-10.8); MONOCYTES # (AUTO) 0.5 10^3/uL (0.0-1.0); MONOCYTES % (AUTO) 7.7 %; NEUTROPHILS # (AUTO) 4.4 10^3/uL (1.5-6.6); NEUTROPHILS % (AUTO) 62.9 %; PLT - PLATELET COUNT 304 10^3/uL (130-450); RED BLOOD COUNT 4.34 10^6/uL (4.20-5.40); RED CELL DISTRIBUTION WIDTH 13.4 % (12.0-15.0); WHITE BLOOD COUNT 6.9 x10^3/uL (4.8-10.8)
[2018-07-02 13:19] LABS: ALBUMIN/GLOBULIN RATIO 1.3 (1.0-2.2); ALKALINE PHOSPHATASE 58 IU/L (42-121); ALT ALANINE AMINOTRANSFERASE 13 IU/L (10-60); AST ASPARTATE AMINOTRANSFERASE 16 IU/L (10-42); BILIRUBIN,TOTAL 0.6 mg/dL (0.2-1.0); BUN - BLOOD UREA NITROGEN 22 mg/dL (6-20); CALCIUM 9.2 mg/dL (8.5-10.3); CARBON DIOXIDE - CO2 24 mmol/L (21-32); CHLORIDE 107 mmol/L (101-111); CHOL/HDL RATIO 3.4 (<4.4); CHOLESTEROL 175 mg/dL; GFR - MDRD 54 (>89); GLUCOSE 102 mg/dL (70-100); HDL CHOLESTEROL 52 mg/dL; LDL CHOLESTEROL,CALCULATED 100 mg/dL; LDL/HDL RATIO 1.9 (<4.4); SODIUM 138 mmol/L (135-145); VLDL CHOLESTEROL 23 mg/dL
== END 2018-07-02 23:59 | disposition home or self-care (01) ==
LOC: LAB.WCP 08:00
PROVIDERS: ATTEND Family Medicine
DX: I10 Essential (primary) hypertension (principal); E78.5 Hyperlipidemia, unspecified; E03.9 Hypothyroidism, unspecified
CPT/HCPCS: 36415; 80053; 80061; 83721; 84443; 85025

== ENCOUNTER 2019-04-06 09:00 | Outpatient (CLI) | payer MEDICARE, OTHER ==
[2019-04-06 13:35] LABS: BASOPHILS # (AUTO) 0.1 10^3/uL (0.0-0.1); BASOPHILS % (AUTO) 1.3 %; EOSINOPHILS # (AUTO) 0.2 10^3/uL (0.0-0.7); EOSINOPHILS % (AUTO) 2.3 %; HGB - HEMOGLOBIN 12.2 g/dL (12.0-16.0); LYMPHOCYTES # (AUTO) 1.9 10^3/uL (1.5-3.5); MEAN CORPUSCULAR HGB CONC 32.1 g/dL (32.0-36.0); MEAN CORPUSCULAR VOLUME 90.3 fL (81.0-99.0); MEAN PLATELET VOLUME 11.2 fL (7.9-10.8); MONOCYTES # (AUTO) 0.5 10^3/uL (0.0-1.0); MONOCYTES % (AUTO) 7.6 %; NEUTROPHILS # (AUTO) 4.4 10^3/uL (1.5-6.6); NEUTROPHILS % (AUTO) 61.5 %; PLT - PLATELET COUNT 325 10^3/uL (130-450); RED BLOOD COUNT 4.21 10^6/uL (4.20-5.40); RED CELL DISTRIBUTION WIDTH 12.8 % (12.0-15.0); WHITE BLOOD COUNT 7.1 x10^3/uL (4.8-10.8)
[2019-04-06 14:10] LABS: ALBUMIN 4.1 g/dL (3.2-5.5); ALBUMIN/GLOBULIN RATIO 1.3 (1.0-2.2); ALKALINE PHOSPHATASE 56 IU/L (42-121); ALT ALANINE AMINOTRANSFERASE 13 IU/L (10-60); AST ASPARTATE AMINOTRANSFERASE 17 IU/L (10-42); BILIRUBIN,TOTAL 0.6 mg/dL (0.2-1.0); BUN - BLOOD UREA NITROGEN 14 mg/dL (6-20); CARBON DIOXIDE - CO2 25 mmol/L (21-32); CHLORIDE 108 mmol/L (101-111); CHOL/HDL RATIO 3.2 (<4.4); CHOLESTEROL 166 mg/dL; CREATININE 0.9 mg/dL (0.4-1.0); GFR - MDRD 60 (>89); GLUCOSE 94 mg/dL (70-100); HDL CHOLESTEROL 52 mg/dL; LDL CHOLESTEROL,CALCULATED 84 mg/dL; LDL/HDL RATIO 1.6 (<4.4); SODIUM 141 mmol/L (135-145); TOTAL PROTEIN 7.3 g/dL (6.7-8.2); VLDL CHOLESTEROL 30 mg/dL
== END 2019-04-06 23:59 | disposition home or self-care (01) ==
LOC: LAB.WCP 09:00
PROVIDERS: ATTEND Physician Assistant Medical
DX: E78.5 Hyperlipidemia, unspecified (principal); F41.9 Anxiety disorder, unspecified; R41.3 Other amnesia; E03.9 Hypothyroidism, unspecified; R53.83 Other fatigue; R42 Dizziness and giddiness
CPT/HCPCS: 36415; 80053; 80061; 83721; 84443; 85025

== ENCOUNTER 2019-09-22 17:41 | Outpatient (CLI) | payer MEDICARE, OTHER | END 2019-09-22 17:42 | disposition home or self-care (01) | LOC: COV 17:41 | PROVIDERS: ATTEND Family Medicine | DX: R50.9 Fever, unspecified (principal); R05 Cough; R53.83 Other fatigue | CPT/HCPCS: 81599 ==

== ENCOUNTER 2020-02-23 12:58 | Outpatient (CLI) | payer MEDICARE, OTHER ==
--- NOTE | 2020-02-23 15:26 | DEXA Report ---
PROCEDURE: Dexa Spine and/or Hip INDICATIONS: POST MENOPAUSAL TECHNIQUE: Dual energy x-ray absorptiometry (DXA) was performed on a Stack[employer] System. Regions measur ed are the AP Spine, femoral neck, and if needed forearm. COMPARISON: None. FINDINGS: Lumbar Spine: Bone Mineral Density 1.00 to g/cm/cm,T score -1.5, osteopenia Left Hip: Bone Mineral Density 0.58 g/cm/cm,T score -3.4, severe osteoporosis Left Femoral Neck: Bone Mineral Density 0.674 g/cm/cm, T score -2.6, mild osteoporosis. (T score greater or equal to -1.0: NORMAL) (T score from -1.1 to -2.4: OSTEOPENIA) (T score less than or equal to -2.5 to: OSTEOPOROSIS) Impression: Severe left femoral neck osteoporosis with mild osteoporosis in the left hip. Patients with diagnosis of osteoporosis or osteopenia should have regular bone mineral density assess ment. For those eligible for Medicare, routine testing is allowed once every 2 years. Testing frequ ency can be increased for patients who have rapidly progressing disease or for those who are receivin g medical therapy to restore bone mass. Reviewed by: Preeti Lopez MD on 02/23/2020 3:25 PM PDT Approved by: Preeti Lopez MD on 02/23/2020 3:25 PM PDT Station ID: [id number]
== END 2020-02-23 12:59 | disposition home or self-care (01) ==
LOC: DI 12:58
PROVIDERS: ATTEND Physician Assistant Medical
DX: M81.0 Age-related osteoporosis without current pathological fracture (principal); Z78.0 Asymptomatic menopausal state
CPT/HCPCS: 77080

== ENCOUNTER 2020-03-20 15:01 | Outpatient (CLI) | payer MEDICARE, OTHER ==
--- NOTE | 2020-03-21 16:44 | Mammography Report ---
BILATERAL DIGITAL SCREENING MAMMOGRAM 3D/2D: 03/20/2020 CLINICAL: Routine screening. Comparison is made to exams dated: 11/08/2014 mammogram and 06/24/2013 mammogram - [facility]. The tissue of both breasts is heterogeneously dense. This may lower the sensitivity of isabelle mography. There is a biopsy clip in the right breast. No significant masses, calcifications, or other findings are seen in either breast. There has been no significant interval change. IMPRESSION: NEGATIVE There is no mammographic evidence of malignancy. A 1 year screening mammogram is recommended. This exam was interpreted at Station ID: [id number]. NOTE: For mammograms, a report in lay terms will be sent to the patient. Approximately 15% of breast malignancies will not be visualized mammographically. In the management of a palpable breast mass, a negative mammogram must not discourage biopsy of a clinically suspicious lesion. Electronically Signed By: Silas Dos Santos M.D. ar/lizz:03/20/2020 17:06:21 ACR BI-RADS Category 1: Negative 3341F PARENCHYMAL PATTERN: (D) - The breast(s) demonstrate(s) heterogeneously dense fibroglandular ela hendrickson. BI-RADS CATEGORY: (1) - 1 RECOMMENDATION: (ANNUAL) - Recommend routine annual screening mammography. [id number] 1 year screening LATERALITY: (B)
== END 2020-03-20 15:02 | disposition home or self-care (01) ==
LOC: DI 15:01
DX: Z12.31 Encounter for screening mammogram for malignant neoplasm of breast (principal)
CPT/HCPCS: 77063; 77067

== ENCOUNTER 2020-03-21 07:00 | Outpatient (CLI) | payer MEDICARE, OTHER ==
[2020-03-21 18:40] LABS: BASOPHILS # (AUTO) 0.1 10^3/uL (0.0-0.1); BASOPHILS % (AUTO) 1.5 %; EOSINOPHILS # (AUTO) 0.2 10^3/uL (0.0-0.7); EOSINOPHILS % (AUTO) 2.8 %; HGB - HEMOGLOBIN 13.1 g/dL (12.0-16.0); LYMPHOCYTES # (AUTO) 1.7 10^3/uL (1.5-3.5); LYMPHOCYTES % (AUTO) 27.8 %; MEAN CORPUSCULAR HGB CONC 31.9 g/dL (32.0-36.0); MEAN CORPUSCULAR VOLUME 91.1 fL (81.0-99.0); MEAN PLATELET VOLUME 10.6 fL (7.9-10.8); MONOCYTES # (AUTO) 0.5 10^3/uL (0.0-1.0); MONOCYTES % (AUTO) 8.4 %; NEUTROPHILS # (AUTO) 3.7 10^3/uL (1.5-6.6); NEUTROPHILS % (AUTO) 59.2 %; PLT - PLATELET COUNT 338 10^3/uL (130-450); RED BLOOD COUNT 4.51 10^6/uL (4.20-5.40); RED CELL DISTRIBUTION WIDTH 13.1 % (12.0-15.0); WHITE BLOOD COUNT 6.2 x10^3/uL (4.8-10.8)
[2020-03-21 18:48] LABS: ALBUMIN 4.3 g/dL (3.2-5.5); ALBUMIN/GLOBULIN RATIO 1.5 (1.0-2.2); ALKALINE PHOSPHATASE 71 IU/L (42-121); ALT ALANINE AMINOTRANSFERASE 15 IU/L (10-60); AST ASPARTATE AMINOTRANSFERASE 18 IU/L (10-42); BILIRUBIN,TOTAL 1.1 mg/dL (0.2-1.0); BUN - BLOOD UREA NITROGEN 17 mg/dL (6-20); CALCIUM 9.3 mg/dL (8.5-10.3); CARBON DIOXIDE - CO2 24 mmol/L (21-32); CHLORIDE 108 mmol/L (101-111); CHOL/HDL RATIO 3.4 (<4.4); CHOLESTEROL 202 mg/dL; CREATININE 0.9 mg/dL (0.4-1.0); GLUCOSE 103 mg/dL (70-100); HDL CHOLESTEROL 59 mg/dL; LDL CHOLESTEROL,CALCULATED 117 mg/dL; SODIUM 141 mmol/L (135-145); TOTAL PROTEIN 7.1 g/dL (6.7-8.2); VLDL CHOLESTEROL 26 mg/dL
== END 2020-03-21 23:59 | disposition home or self-care (01) ==
LOC: LAB.WCP 07:00
PROVIDERS: ATTEND Physician Assistant Medical
DX: E78.5 Hyperlipidemia, unspecified (principal); E03.9 Hypothyroidism, unspecified; K27.9 Peptic ulcer, site unspecified, unspecified as acute or chronic, without hemorrhage or perforation
CPT/HCPCS: 36415; 80053; 80061; 83721; 84443; 85025

== ENCOUNTER 2020-08-21 15:46 | Emergency (ER) | payer MEDICARE, OTHER ==
[2020-08-21 16:46] LABS: BASOPHILS # (AUTO) 0.1 10^3/uL (0.0-0.1); EOSINOPHILS # (AUTO) 0.2 10^3/uL (0.0-0.7); EOSINOPHILS % (AUTO) 1.9 %; HCT - HEMATOCRIT 37.5 % (37.0-47.0); HGB - HEMOGLOBIN 12.4 g/dL (12.0-16.0); LYMPHOCYTES # (AUTO) 2.2 10^3/uL (1.5-3.5); LYMPHOCYTES % (AUTO) 28.2 %; MEAN CORPUSCULAR HEMOGLOBIN 29.2 pg (27.0-31.0); MEAN CORPUSCULAR HGB CONC 33.1 g/dL (32.0-36.0); MEAN CORPUSCULAR VOLUME 88.4 fL (81.0-99.0); MONOCYTES # (AUTO) 0.5 10^3/uL (0.0-1.0); MONOCYTES % (AUTO) 6.8 %; NEUTROPHILS # (AUTO) 4.9 10^3/uL (1.5-6.6); NEUTROPHILS % (AUTO) 61.8 %; PLT - PLATELET COUNT 287 10^3/uL (130-450); RED BLOOD COUNT 4.24 10^6/uL (4.20-5.40); RED CELL DISTRIBUTION WIDTH 12.7 % (12.0-15.0); WHITE BLOOD COUNT 7.9 x10^3/uL (4.8-10.8)
--- NOTE | 2020-08-21 16:47 | XRAY Report ---
PROCEDURE: Chest 1 View X-Ray INDICATIONS: Chest Pain TECHNIQUE: One view of the chest was acquired. COMPARISON: 04/26/2013 FINDINGS: Surgical changes and devices: Interval total left shoulder arthroplasty. Lungs and pleura: No pleural effusions or pneumothorax. Lungs are clear. Mediastinum: Mediastinal contours appear normal. Heart size is normal. Bones and chest wall: No suspicious bony lesions. Overlying soft tissues appear unremarkable. Question avascular necrosis of the right humeral head IMPRESSION: 1. No evidence acute pulmonary process. 2. Question avascular necrosis of the right humeral head. However, there is no flattening deformity o f the articular surface. Reviewed by: Abebe Travis MD on 08/21/2020 4:46 PM PDT Approved by: Abebe Travis MD on 08/21/2020 4:46 PM PDT Station ID: [id number]
[2020-08-21 16:59] LABS: ALBUMIN 4.1 g/dL (3.2-5.5); ALBUMIN/GLOBULIN RATIO 1.5 (1.0-2.2); BILIRUBIN,TOTAL 0.7 mg/dL (0.2-1.0); CREATININE 0.9 mg/dL (0.4-1.0); POTASSIUM 3.6 mmol/L (3.5-5.0); TOTAL PROTEIN 6.8 g/dL (6.7-8.2)
--- NOTE | 2020-08-21 17:37 | ED Physician Documentation ---
History of Present Illness - Stated complaint Stated Complaint: SOA, WEAK - Chief complaint Chief Complaint: Resp - History obtained from History obtained from: Patient - History of Present Illness Timing: Today Pain level max: 0 Pain level now: 0 - Additonal information Additional information: Patient is an 79-year-old female who presents to the emergency department stating she went on a walk today made about 2-1/2 blocks uphill when she felt short of breath. She states she normally does not leave the house and normally does not walk. She states she sat down and a neighbor drove her back home. She states her was concerned that she was out of breath and brought her to the emergency department. The patient states that she has no heart history. She states that she was referred to a r d manager in [place], but does not know why. She states she has had multiple normal cardiac stress test. No history of stents or bypasses. No chest pain today. No headache. No fever. No chills. No cough. 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: Other : None HEENT: Chronic vision loss, Chronic hearing loss Psych: Depression Musculoskeletal: Other Derm: None - Past Surgical History Past Surgical History: Yes General: Colonoscopy Ortho: Shoulder arthroplasty Cardiovascular: Vascular surgery - Present Medications Home Medications: Ambulatory Orders Medication Instructions Recorded Confirmed Citalopram [CeleXA] 10 mg PO DAILY 11/26/13 01/27/18 Aspirin 81 mg ORAL DAILY 11/28/13 01/27/18 Atorvastatin Calcium 10 mg PO QPM 01/27/18 01/27/18 Calcium Carbonate/Vitamin D3 1 tab PO DAILY 01/27/18 01/27/18 [Calcium 600-Vit D3 400 Tablet] Lactobacillus Acidophilus 1 cap PO DAILY 01/27/18 01/27/18 [Acidophilus Lactobacilli] Levothyroxine Sodium 88 mcg PO DAILY 01/27/18 01/27/18 Pantoprazole Sodium 40 mg PO DAILY 01/27/18 01/27/18 Propranolol HCl [Propranolol HCl 60 mg PO DAILY 01/27/18 01/27/18 ER] Clopidogrel [Plavix] 75 mg PO DAILY #30 tablet 01/28/18 - Allergies Allergies/Adverse Reactions: Allergies Allergy/AdvReac Type Severity Reaction Status Date / Time Penicillins Allergy Severe Rash Verified 08/21/20 16:19 - Social History Does the pt smoke?: No Smoking Status: Never smoker Does the pt drink ETOH?: No Does the pt have substance abuse?: No - Immunizations Immunizations are current?: Yes - POLST Patient has POLST: Yes POLST Status: Full Code (She would like to be a full code. However, if she has significant disability such as a massive stroke with chronic residual resulting in dependence for her activities of daily living, she would like to be changed to a DO NOT RESUSCITATE.) PD ED PE NORMAL - Vitals Vital signs reviewed: Yes - General General: Alert and oriented X 3, No acute distress, Well developed/nourished - HEENT HEENT: PERRL, Moist mucous membranes - Neck Neck: Supple, no meningeal sign - Cardiac Cardiac: RRR - Respiratory Respiratory: No respiratory distress, Clear bilaterally - Abdomen Abdomen: Soft, Non tender, Non distended - Derm Derm: Warm and dry - Extremities Extremities: No edema, No calf tenderness / cord - Neuro Neuro: Alert and oriented X 3 - Psych Psych: Normal mood, Normal affect Results - Vitals Vitals: Vital Signs - 24 hr 08/21/20 08/21/20 08/21/20 16:12 16:46 17:39 Temperature 36.1 C L Heart Rate 59 L 60 59 L Respiratory 16 20 21 Rate Blood Pressure 123/46 L 144/53 H 154/51 H O2 Saturation 96 100 98 08/21/20 08/21/20 18:38 19:10 Temperature 36.6 C Heart Rate 61 61 Respiratory 20 18 Rate Blood Pressure 142/67 H 159/98 H O2 Saturation 94 100 Oxygen O2 Source Room air - EKG (time done) 1624 Rate: Rate (enter#) (59) Rhythm: NSR [place]: Normal Intervals: Normal ND QRS: Normal Ischemia: Normal ST segments, Q waves (II, III, aVF) - Labs Labs: Laboratory Tests 08/21/20 08/21/20 08/21/20 16:40 16:40 16:40 WBC 7.9 RBC 4.24 Hgb 12.4 Hct 37.5 MCV 88.4 MCH 29.2 MCHC 33.1 RDW 12.7 Plt Count 287 MPV 10.0 Neut # (Auto) 4.9 Lymph # (Auto) 2.2 [place] # (Auto) 0.5 Eos # (Auto) 0.2 Baso # (Auto) 0.1 Absolute Nucleated RBC 0.00 Nucleated RBC % 0.0 Sodium 137 Potassium 3.6 Chloride 106 Carbon Dioxide 22 Anion Gap 9.0 BUN 19 Creatinine 0.9 Estimated GFR (MDRD) 60 L Glucose 136 H Calcium 9.0 Total Bilirubin 0.7 AST 18 ALT 17 Alkaline Phosphatase 58 Troponin I High Sens 3.3 Total Protein 6.8 Albumin 4.1 Globulin 2.7 Albumin/Globulin Ratio 1.5 Lipase 27 Urine Color Urine Clarity Urine pH Ur Specific [place] Urine Protein Urine Glucose (UA) Urine Ketones Urine Occult Blood Urine Nitrite Urine Bilirubin Urine Urobilinogen Ur Leukocyte Esterase Ur Microscopic Review Urine Culture Comments 08/21/20 08/21/20 18:48 19:09 WBC RBC Hgb Hct MCV MCH MCHC RDW Plt Count MPV Neut # (Auto) Lymph # (Auto) [place] # (Auto) Eos # (Auto) Baso # (Auto) Absolute Nucleated RBC Nucleated RBC % Sodium Potassium Chloride Carbon Dioxide Anion Gap BUN Creatinine Estimated GFR (MDRD) Glucose Calcium Total Bilirubin AST ALT Alkaline Phosphatase Troponin I High Sens < 2.3 L Total Protein Albumin Globulin Albumin/Globulin Ratio Lipase Urine Color YELLOW Urine Clarity CLEAR Urine pH 7.0 Ur Specific [place] 1.015 Urine Protein NEGATIVE Urine Glucose (UA) NEGATIVE Urine Ketones NEGATIVE Urine Occult Blood NEGATIVE Urine Nitrite NEGATIVE Urine Bilirubin NEGATIVE Urine Urobilinogen 0.2 (NORMAL) Ur Leukocyte Esterase NEGATIVE Ur Microscopic Review NOT INDICATED Urine Culture Comments NOT INDICATED - Rads (name of study) cxr Radiology: Prelim report reviewed, EMP read contemporaneously, See rad report (no acute abnormality.) PD MEDICAL DECISION MAKING - ED course Complexity details: reviewed results, re-evaluated patient, considered differential, d/w patient ED course: No acute findings on chest x-ray, EKG or laboratory testing. Patient is asymptomatic here. Negative troponin x2. We will have her follow-up with her doctor for further care. Patient should have further cardiac work-up with her doctor. Patient counseled regarding signs and symptoms for which I believe and urgent re-evaluation would be necessary. Patient with good understanding of and agreement to plan and is comfortable going home at this time This document was made in part using voice recognition software. While efforts are made to proofread this document, sound alike and grammatical errors may oc cur. Departure - Departure Disposition: 01 Home, Self Care Clinical Impression: Dyspnea on exertion Condition: Stable Instructions: ED Dyspnea Shortness of Breath Follow-Up: Tila Payan PA-C [Primary Care Provider] - Within 1 week Comments: Follow-up with your doctor for further care. The cause of your symptoms is unclear today. It is important that you follow-up closely with your doctor this week. You should also talk to your r d manager. Return if you worsen. You should have a cardiac stress test if you have not had one recently. Discharge Date/Time: 08/21/20 19:29
[2020-08-21] MEDS ORDERED: SODIUM CHLORIDE 0.9% 1,000 ML IV STA (17:38)
[2020-08-21 19:11] VITALS: BP 159/98
[2020-08-21 19:14] LABS: BILIRUBIN,URINE NEGATIVE (NEGATIVE); CLARITY,URINE CLEAR (CLEAR); GLUCOSE, URINE (UA) NEGATIVE (NEGATIVE); KETONES,URINE (UA) NEGATIVE (NEGATIVE); LEUKOCYTE ESTERASE, URINE NEGATIVE (NEGATIVE); NITRITE,URINE NEGATIVE (NEGATIVE); OCCULT BLOOD,URINE NEGATIVE (NEGATIVE); PROTEIN,URINE NEGATIVE (NEGATIVE); UROBILINOGEN,URINE 0.2 (NORMAL) E.U./dL (NORMAL)
== END 2020-08-21 19:29 | disposition home or self-care (01) ==
LOC: ED 15:46
DX: R06.09 Other forms of dyspnea (principal); Z66 Do not resuscitate
CPT/HCPCS: 36415; 80053; 81001; 81003; 83690; 84484; 85025; 87086; 93005; 96360; 99283

== ENCOUNTER 2020-09-06 15:35 | Outpatient (CLI) | payer MEDICARE, OTHER ==
--- NOTE | 2020-09-06 15:53 | XRAY Report ---
PROCEDURE: Shoulder 2 View RT INDICATIONS: ABN CHEST XR TECHNIQUE: 2 views of the shoulder were acquired. COMPARISON: Chest radiograph dated 08/21/2020. FINDINGS: Bones: No acute fractures or dislocations. Redemonstration of mild sclerosis involving the right hum eral head. No flattening or cortical disruption. Overall contour appears smooth. There are degenerati ve changes of the right shoulder. No suspicious bony lesions. Visualized ribs appear intact. Soft tissues: No suspicious soft tissue calcifications. IMPRESSION: Right shoulder without acute fracture or dislocation. Persistent sclerosis of the right humeral head without cortical irregularity or flattening of the hum eral head. Findings may be related to degenerative changes. No radiographic evidence to support seque la of significant avascular necrosis. Further evaluation with cross-sectional imaging can be consider ed as clinically needed. Reviewed by: James Cummings MD on 09/06/2020 3:52 PM PDT Approved by: James Cummings MD on 09/06/2020 3:52 PM PDT Station ID: [id number]
== END 2020-09-06 15:36 | disposition home or self-care (01) ==
LOC: DI 15:35
PROVIDERS: ATTEND Physician Assistant Medical
DX: R93.6 Abnormal findings on diagnostic imaging of limbs (principal)

== ENCOUNTER 2021-02-21 15:13 | Outpatient (CLI) | payer MEDICARE, OTHER ==
[2021-02-21 18:20] LABS: ALBUMIN 4.2 g/dL (3.2-5.5); ALBUMIN/GLOBULIN RATIO 1.5 (1.0-2.2); BILIRUBIN,TOTAL 0.8 mg/dL (0.2-1.0); CALCIUM 8.9 mg/dL (8.5-10.3); CREATININE 0.8 mg/dL (0.4-1.0); POTASSIUM 4.2 mmol/L (3.5-5.0)
[2021-02-21 18:42] LABS: THYROID STIMULATING HORMONE 0.59 uIU/mL (0.34-5.60)
== END 2021-02-21 23:59 | disposition home or self-care (01) ==
LOC: LAB.WCP 15:13
PROVIDERS: ATTEND Physician Assistant Medical
DX: E78.5 Hyperlipidemia, unspecified (principal); E03.9 Hypothyroidism, unspecified
CPT/HCPCS: 36415; 80053; 83036; 84443

== ENCOUNTER 2021-04-02 15:45 | Outpatient (CLI) | payer MEDICARE, OTHER ==
--- NOTE | 2021-04-02 18:34 | Ultrasound Report ---
PROCEDURE: Carotid Doppler Complete INDICATIONS: SUBCLAVIAN ARTERY STENOSIS TECHNIQUE: Color and pulse Doppler interrogation was performed of both carotid systems, with image documentation and velocity measurements. COMPARISON: None. FINDINGS: Right side: Brachial blood pressure: 181/68 mm Hg. Common carotid artery peak systolic velocity: 84.9 cm/sec. Internal carotid artery peak systolic velocity: 84.0 cm/sec. Internal carotid artery end diastolic velocity: 22.7 cm/sec. External carotid artery peak systolic velocity: 91.0 cm/sec. ICA/CCA peak systolic ratio: 1.0 . Peak systolic velocity in proximal subclavian artery, 90 cm/s, mid subclavian artery, 152 cm/s, dista l subclavian artery, 254 cm/s Molina scale imaging description: Extensive atherosclerotic plaques are noted throughout distal right, carotid artery and right external and internal carotid arteries. Patient's known right subclavian st ent is not well seen on this study. Percent internal carotid artery stenosis: Less than 50% in right internal carotid artery . Suggesti on of 50-69% stenosis involving midportion of subclavian artery. Vertebral artery: Flow direction is antegrade. Left side: Brachial blood pressure: 142/85 mm Hg. Common carotid artery peak systolic velocity: 121.7 cm/sec. Internal carotid artery peak systolic velocity: 71.6 to cm/sec. Internal carotid artery end diastolic velocity: 17.9 cm/sec. External carotid artery peak systolic velocity: 97.0 cm/sec. ICA/CCA peak systolic ratio: 0.6 . Proximal left subclavian artery peak systolic velocity is 35.2 cm/s. Molina scale imaging description: Extensive atherosclerotic plaques are noted throughout distal common carotid artery and proximal left internal and external carotid arteries. Patient's known left caroti d/subclavian bypass graft appears to be occluded however evaluation is limited due to overlying clavi ace. Percent internal carotid artery stenosis: Less than 50% . Vertebral artery: Flow direction is antegrade. IMPRESSION: 1. Markedly limited study due to torturous vessels obscuration by the bilateral clavicles. 2. Finding is suggestive of less than 50% stenosis are noted in bilateral internal carotid arteries 3. Patient's known right subclavian stent is not well visualized. Suggestion of 50-69% stenosis invol ving mid portion of right internal carotid artery. 4. Patient's known left carotid subclavian stent is poorly visualized and appears to be occluded. Cli nical correlation is recommended. Dedicated CT angiogram can be done for further evaluation of neck v essels. The estimate of stenosis included in the report of the imaging study was calculated using the NASCET method Reviewed by: Ren Jimenez MD on 04/02/2021 6:32 PM PDT Approved by: Ren Jimenez MD on 04/02/2021 6:32 PM PDT Station ID: [id number]
== END 2021-04-02 15:46 | disposition home or self-care (01) ==
LOC: DI 15:45
PROVIDERS: ATTEND Surgery Vascular Surgery
DX: I77.1 Stricture of artery (principal); I65.23 Occlusion and stenosis of bilateral carotid arteries
CPT/HCPCS: 93880

== ENCOUNTER 2021-07-10 14:01 | Outpatient (CLI) | payer MEDICARE ==
[2021-07-10] MEDS ORDERED: GADOBUTROL 7.5 MMOL/7.5 ML VIAL ONE (14:44)
[2021-07-10] MEDS ORDERED: GADOBUTROL 7.5 MMOL/7.5 ML VIAL IVP ONE (16:37)
--- NOTE | 2021-07-10 16:51 | MRI Report ---
PROCEDURE: Brain W/WO INDICATIONS: TIA CONTRAST: IV CONTRAST: Gadavist ml: 6.1 TECHNIQUE: Noncontrast axial T1 spin echo, axial T2 fast spin echo, sagittal and axial FLAIR, coronal T2 fast sp in echo, axial gradient echo, axial diffusion and ADC through the brain. After the administration of contrast, axial and coronal T1 spin echo with fat saturation through the brain. COMPARISON: None. FINDINGS: Image quality: Excellent. CSF spaces: Basal cisterns are patent. No extra-axial fluid collections. Ventricles are normal in size and shape. Brain: No midline shift. No intracranial bleeds or masses. No abnormal intracranial enhancement. There is cerebral volume loss for age. There is periventricular white matter chronic small vessel is chemic change. The brainstem appears normal. Diffusion-weighted images demonstrate no acute ischemi c insults. No chronic ischemic insults. Normal intravascular flow voids are present. Skull and face: Calvarial marrow is normal in signal. Orbits appear normal. Sinuses: Sinuses and mastoids appear clear. IMPRESSION: 1. No acute process. No recent infarct. Reviewed by: Sweta Moreau MD on 07/10/2021 4:50 PM PST Approved by: Sweta Moreau MD on 07/10/2021 4:50 PM PST Station ID: [id number]
== END 2021-07-10 14:02 | disposition home or self-care (01) ==
LOC: DI 14:01
PROVIDERS: ATTEND Physician Assistant Medical
DX: G45.9 Transient cerebral ischemic attack, unspecified (principal); I10 Essential (primary) hypertension
CPT/HCPCS: 36415; 70553; 80048; A9585

== ENCOUNTER 2021-07-24 16:32 | Outpatient (CLI) | payer MEDICARE ==
--- NOTE | 2021-07-24 17:20 | CT Report ---
PROCEDURE: HEAD WO INDICATIONS: TRANSIENT ISCHEMIC ATTACK TECHNIQUE: Noncontrast 4.5 mm thick angled axial sections acquired from the foramen magnum to the vertex. For r adiation dose reduction, the following was used: automated exposure control, adjustment of mA and/or kV according to patient size. COMPARISON: Correlation is made with brain MRI, 07/10/2021. Correlation is also made with prior head C T angiogram, 01/19/2018. FINDINGS: Image quality: There is streak artifact seen through the skull base. CSF spaces: Basal cisterns are patent. No extra-axial fluid collections. Ventricles are normal in size and shape. Brain: No midline shift. No intracranial masses or hemorrhage. Molina-white matter interface is norm al. Skull and face: Calvarium and visualized facial bones are intact, without suspicious lesions. Hyper ostosis frontalis is incidentally noted, which is not frankly abnormal for a female patient of this a ge. Sinuses: Visualized sinuses and mastoids are clear. IMPRESSION: Unremarkable noncontrast head CT for age. Reviewed by: Keagan Pack MD on 07/24/2021 4:18 PM [place] Approved by: Keagan Pack MD on 07/24/2021 4:18 PM [facility] Station ID: [id number]
== END 2021-07-24 16:33 | disposition home or self-care (01) ==
LOC: DI 16:32
PROVIDERS: ATTEND Physician Assistant
DX: G45.9 Transient cerebral ischemic attack, unspecified (principal)

== ENCOUNTER 2021-11-22 12:10 | Outpatient (CLI) | payer MEDICARE ==
[2021-11-22 12:26] LABS: BASOPHILS # (AUTO) 0.1 10^3/uL (0.0-0.1); BASOPHILS % (AUTO) 0.8 %; EOSINOPHILS # (AUTO) 0.1 10^3/uL (0.0-0.7); EOSINOPHILS % (AUTO) 0.8 %; HCT - HEMATOCRIT 38.7 % (37.0-47.0); HGB - HEMOGLOBIN 12.7 g/dL (12.0-16.0); LYMPHOCYTES # (AUTO) 2.3 10^3/uL (1.5-3.5); LYMPHOCYTES % (AUTO) 28.2 %; MEAN CORPUSCULAR HEMOGLOBIN 29.3 pg (27.0-31.0); MEAN CORPUSCULAR HGB CONC 32.8 g/dL (32.0-36.0); MEAN CORPUSCULAR VOLUME 89.4 fL (81.0-99.0); MEAN PLATELET VOLUME 9.6 fL (7.9-10.8); MONOCYTES # (AUTO) 0.8 10^3/uL (0.0-1.0); MONOCYTES % (AUTO) 9.2 %; NEUTROPHILS % (AUTO) 60.6 %; PLT - PLATELET COUNT 343 10^3/uL (130-450); RED BLOOD COUNT 4.33 10^6/uL (4.20-5.40); RED CELL DISTRIBUTION WIDTH 12.4 % (12.0-15.0); WHITE BLOOD COUNT 8.3 x10^3/uL (4.8-10.8)
[2021-11-22 12:45] LABS: ALBUMIN 4.3 g/dL (3.2-5.5); ALBUMIN/GLOBULIN RATIO 1.5 (1.0-2.2); ALKALINE PHOSPHATASE 43 IU/L (42-121); ALT ALANINE AMINOTRANSFERASE 13 IU/L (10-60); AST ASPARTATE AMINOTRANSFERASE 15 IU/L (10-42); BILIRUBIN,TOTAL 0.7 mg/dL (0.2-1.0); BUN - BLOOD UREA NITROGEN 16 mg/dL (6-20); CARBON DIOXIDE - CO2 25 mmol/L (21-32); CHLORIDE 103 mmol/L (101-111); CHOL/HDL RATIO 2.7 (<4.4); CHOLESTEROL 175 mg/dL; CREATININE 0.9 mg/dL (0.4-1.0); GFR - MDRD 60 (>89); GLUCOSE 99 mg/dL (70-100); HDL CHOLESTEROL 64 mg/dL; LDL CHOLESTEROL,CALCULATED 83 mg/dL; LDL/HDL RATIO 1.3 (<4.4); SODIUM 137 mmol/L (135-145); TOTAL PROTEIN 7.2 g/dL (6.7-8.2); TRIGLYCERIDES 142 mg/dL; VLDL CHOLESTEROL 28 mg/dL
== END 2021-11-22 12:11 | disposition home or self-care (01) ==
LOC: LAB 12:10
PROVIDERS: ATTEND Physician Assistant Medical
DX: E78.5 Hyperlipidemia, unspecified (principal); I10 Essential (primary) hypertension
CPT/HCPCS: 36415; 80053; 80061; 83721; 85025

== ENCOUNTER 2022-02-23 12:43 | Outpatient (CLI) | payer MEDICARE ==
[2022-02-23 14:01] LABS: THYROID STIMULATING HORMONE 2.02 uIU/mL (0.34-5.60)
[2022-02-23 14:11] LABS: ALBUMIN 4.2 g/dL (3.2-5.5); ALBUMIN/GLOBULIN RATIO 1.5 (1.0-2.2); ALKALINE PHOSPHATASE 42 IU/L (42-121); ALT ALANINE AMINOTRANSFERASE 17 IU/L (10-60); AST ASPARTATE AMINOTRANSFERASE 18 IU/L (10-42); BILIRUBIN,TOTAL 0.7 mg/dL (0.2-1.0); BUN - BLOOD UREA NITROGEN 20 mg/dL (6-20); CALCIUM 9.7 mg/dL (8.5-10.3); CARBON DIOXIDE - CO2 28 mmol/L (21-32); CHLORIDE 102 mmol/L (101-111); CHOL/HDL RATIO 3.1 (<4.4); CHOLESTEROL 196 mg/dL; CREATININE 0.8 mg/dL (0.4-1.0); GFR - MDRD 69 (>89); GLUCOSE 98 mg/dL (70-100); HDL CHOLESTEROL 63 mg/dL; LDL CHOLESTEROL,CALCULATED 108 mg/dL; LDL/HDL RATIO 1.7 (<4.4); POTASSIUM 4.6 mmol/L (3.5-5.0); SODIUM 138 mmol/L (135-145); TRIGLYCERIDES 126 mg/dL; VLDL CHOLESTEROL 25 mg/dL
[2022-02-23 14:12] LABS: CRP - C-REACTIVE PROTEIN < 1.0 mg/dL (0-1.0)
== END 2022-02-23 12:44 | disposition home or self-care (01) ==
LOC: LAB 12:43
PROVIDERS: ATTEND Physician Assistant Medical
DX: E78.5 Hyperlipidemia, unspecified (principal); E03.9 Hypothyroidism, unspecified; M31.6 Other giant cell arteritis
CPT/HCPCS: 36415; 80053; 80061; 83721; 84443; 85651; 86140

== ENCOUNTER 2022-02-25 15:21 | Observation (INO) | payer MEDICARE ==
[2022-02-25 16:15] LABS: BASOPHILS # (AUTO) 0.1 10^3/uL (0.0-0.1); BASOPHILS % (AUTO) 0.8 %; EOSINOPHILS # (AUTO) 0.1 10^3/uL (0.0-0.7); EOSINOPHILS % (AUTO) 1.6 %; HCT - HEMATOCRIT 37.6 % (37.0-47.0); HGB - HEMOGLOBIN 12.6 g/dL (12.0-16.0); LYMPHOCYTES # (AUTO) 2.4 10^3/uL (1.5-3.5); LYMPHOCYTES % (AUTO) 26.6 %; MEAN CORPUSCULAR HEMOGLOBIN 29.6 pg (27.0-31.0); MEAN CORPUSCULAR HGB CONC 33.5 g/dL (32.0-36.0); MEAN CORPUSCULAR VOLUME 88.5 fL (81.0-99.0); MEAN PLATELET VOLUME 9.6 fL (7.9-10.8); MONOCYTES # (AUTO) 0.8 10^3/uL (0.0-1.0); MONOCYTES % (AUTO) 9.3 %; NEUTROPHILS # (AUTO) 5.5 10^3/uL (1.5-6.6); NEUTROPHILS % (AUTO) 61.1 %; PLT - PLATELET COUNT 361 10^3/uL (130-450); PT - PROTHROMBIN TIME 11.4 secs (9.9-12.6); RED BLOOD COUNT 4.25 10^6/uL (4.20-5.40); RED CELL DISTRIBUTION WIDTH 12.8 % (12.0-15.0)
--- NOTE | 2022-02-25 16:29 | ED Physician Documentation ---
PD HPI FOCAL NEURO - Stated complaint Stated Complaint: STROKE SYMPTIOMS, IMPARED SPEECH - Chief complaint Chief Complaint: Neuro - History obtained from History obtained from: Patient, Family - Additional information Additional information: Patient is an 81-year-old female with a history of TIAs presenting for evaluation of word finding difficulty that started around 3 PM. Patient was walking in [employer] with Her when he noticed that She was having trouble finding her words. He has stated that this is happened to her in the past but this episode was lasting longer than usual. She does take Plavix daily. He did not note any other deficits. She was feeling well prior to the episode starting. Review of Systems Constitutional: denies: Fever Cardiac: denies: Chest pain / pressure Respiratory: denies: Dyspnea GI: denies: Abdominal Pain Musculoskeletal: denies: Back pain Neurologic: reports: Difficulty speaking. 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: Other : None HEENT: Chronic vision loss, Chronic hearing loss Psych: Depression Musculoskeletal: Other Derm: None - Past Surgical History Past Surgical History: Yes General: Colonoscopy Ortho: Shoulder arthroplasty Cardiovascular: Vascular surgery - Present Medications Home Medications: Ambulatory Orders Medication Instructions Recorded Confirmed Citalopram [CeleXA] 10 mg PO DAILY 11/26/13 02/23/21 Atorvastatin Calcium 10 mg PO QPM 01/27/18 02/23/21 Calcium Carbonate/Vitamin D3 1 tab PO DAILY 01/27/18 02/23/21 [Calcium 600-Vit D3 400 Tablet] Lactobacillus Acidophilus 1 cap PO DAILY 01/27/18 02/23/21 [Acidophilus Lactobacilli] Levothyroxine Sodium 88 mcg PO DAILY 01/27/18 02/23/21 Pantoprazole Sodium 40 mg PO DAILY 01/27/18 02/23/21 Propranolol HCl [Propranolol HCl 60 mg PO DAILY 01/27/18 02/23/21 ER] - Allergies Allergies/Adverse Reactions: Allergies Allergy/AdvReac Type Severity Reaction Status Date / Time Penicillins Allergy Severe Rash Verified 02/25/22 15:32 - Social History Does the pt smoke?: No Smoking Status: Never smoker Does the pt drink ETOH?: No Does the pt have substance abuse?: No - Immunizations Immunizations are current?: Yes - POLST Patient has POLST: Yes POLST Status: Full Code (She would like to be a full code. However, if she has significant disability such as a massive stroke with chronic residual resulting in dependence for her activities of daily living, she would like to be changed to a DO NOT RESUSCITATE.) PD ED PE NORMAL - General General: Alert and oriented X 3, No acute distress, Well developed/nourished - HEENT HEENT: Atraumatic, Moist mucous membranes - Neck Neck: Supple, no meningeal sign, No bony TTP - Cardiac Cardiac: RRR, No murmur, Strong equal pulses - Respiratory Respiratory: No respiratory distress, Clear bilaterally - Abdomen Abdomen: Normal bowel sounds, Soft, Non tender, Non distended - Derm Derm: Warm and dry - Extremities Extremities: No edema - Neuro Neuro: Alert and oriented X 3, 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 No: Normal speech (Mild word finding difficulty) NIHSS - Level of Consciousness Level of consciousness: (0) Alert, Keenly responsive LOC Questions: (0) Answers both Q's correct LOC Commands: (0) Performs both correctly - Gaze Best Gaze: (0) Normal - Visual Visual: (0) No loss - Facial Palsy Facial Palsy: (0) Normal, symmetrical movement - Motor Arms (both separate) Motor Arm (right): (0) No drift Motor Arm (left): (0) No drift - Motor Legs (both separate) Motor Leg (right): (0) No drift Motor Leg (left): (0) No drift - Limb Ataxia Limb Ataxia: (0) Absent - Sensory Sensory: (0) Normal - Best Language Best Language: (1) [id number] - Dysarthria Dysarthria: (0) Normal - Extinction and Inattention (formally neg Extinction and inattention: (0) No abnormality - Total Score/Results Total Score/Result: 1 Results - Vitals Vitals: Vital Signs - 24 hr 02/25/22 02/25/22 02/25/22 15:26 16:22 16:30 Temperature 36.7 C Heart Rate 75 74 72 Respiratory 16 19 12 Rate Blood Pressure 207/76 H 198/74 H 160/95 H O2 Saturation 97 96 95 02/25/22 17:57 Temperature Heart Rate 74 Respiratory 19 Rate Blood Pressure 206/79 H O2 Saturation 99 Oxygen O2 Source Room air - EKG (time done) 1612 Rate: Rate (enter#) (78) Rhythm: NSR Intervals: No: Prolonged QT Ischemia: No: ST elevation c/w ischemia, ST depression - Labs Labs: Laboratory Tests 02/25/22 02/25/22 02/25/22 16:00 16:00 16:00 WBC 9.0 RBC 4.25 Hgb 12.6 Hct 37.6 MCV 88.5 MCH 29.6 MCHC 33.5 RDW 12.8 Plt Count 361 MPV 9.6 Neut # (Auto) 5.5 Lymph # (Auto) 2.4 [place] # (Auto) 0.8 Eos # (Auto) 0.1 Baso # (Auto) 0.1 Absolute Nucleated RBC 0.00 Nucleated RBC % 0.0 PT 11.4 INR 1.0 Sodium 137 Potassium 4.1 Chloride 103 Carbon Dioxide 25 Anion Gap 9.0 BUN 17 Creatinine 0.8 Estimated GFR (MDRD) 69 L Glucose 97 Calcium 9.4 Total Bilirubin 0.4 AST 18 ALT 16 Alkaline Phosphatase 49 Total Protein 7.1 Albumin 4.1 Globulin 3.0 Albumin/Globulin Ratio 1.4 Lipase 32 SARS-CoV-2 (PCR) 02/25/22 16:55 WBC RBC Hgb Hct MCV MCH MCHC RDW Plt Count MPV Neut # (Auto) Lymph # (Auto) [place] # (Auto) Eos # (Auto) Baso # (Auto) Absolute Nucleated RBC Nucleated RBC % PT INR Sodium Potassium Chloride Carbon Dioxide Anion Gap BUN Creatinine Estimated GFR (MDRD) Glucose Calcium Total Bilirubin AST ALT Alkaline Phosphatase Total Protein Albumin Globulin Albumin/Globulin Ratio Lipase SARS-CoV-2 (PCR) NOT DETECTED PD MEDICAL DECISION MAKING - ED course Complexity details: reviewed results, re-evaluated patient, d/w patient, d/w family ED course: Patient evaluated for word finding difficulty that started this afternoon. Her NIH is 1. Telestroke was consulted. Patient is not a thrombolytic candidate as her NIH is low and her symptoms do appear to be improving. Recommends adding aspirin in addition to the Plavix that she normally takes. Recommends admission to hospital for stroke work-up with MRI and Echo. Patient's blood pressure has been elevated. Recommends allowing for permissive hypertension. Patient symptoms do appear to be improving but she continues to have some difficulties with speech. Patient is agreeable to admission as is at the bedside. 1730 - Called hospitalist, voicemail left. 180 - D/W Dr. Alan WIll place orders; defer admission note to night hospitalist. She will sign out to them. Departure - Departure Disposition: ED Place in Observation Clinical Impression: TIA (transient ischemic attack) Qualifiers: Transient cerebral ischemia type: unspecified Qualified Code(s): G45.9 - Transient cerebral ischemic attack, unspecified Condition: Stable Discharge Date/Time: 02/25/22 19:53
--- NOTE | 2022-02-25 16:37 | CT Report ---
PROCEDURE: Head W/O Stroke Protocol INDICATIONS: expressive aphasia x 30 mins TECHNIQUE: Noncontrast 4.5 mm thick angled axial sections acquired from the foramen magnum to the vertex, with c oronal reformats. For radiation dose reduction, the following was used: automated exposure control, adjustment of mA and/or kV according to patient size. COMPARISON: FINDINGS: Image quality: Excellent. CSF spaces: Basal cisterns are patent. No extra-axial fluid collections. Ventricles are normal in size and shape. Brain: No midline shift. No intracranial masses or hemorrhage. [place]-white matter interface is norm al. There is mild volume loss and deep and periventricular white matter changes likely associated wit h mild chronic microvascular ischemic changes. Skull and face: Calvarium and visualized facial bones are intact, without suspicious lesions. Sinuses: Visualized sinuses and mastoids are clear. IMPRESSION: No acute intracranial findings. Mild findings likely associated with chronic microvascul ar ischemic change. This study fulfills neurological imaging criteria for inclusion or exclusion of acute stroke therapie s based on available published neurological imaging guidelines. Reviewed by: Laura Willoughby MD on 02/25/2022 4:35 PM PDT Approved by: Laura Willoughby MD on 02/25/2022 4:35 PM PDT Station ID: [id number]
[2022-02-25] MEDS ORDERED: ASPIRIN 325 MG TABLET PO STA (16:44)
[2022-02-25 16:45] LABS: ALBUMIN 4.1 g/dL (3.2-5.5); ALBUMIN/GLOBULIN RATIO 1.4 (1.0-2.2); BILIRUBIN,TOTAL 0.4 mg/dL (0.2-1.0); CREATININE 0.8 mg/dL (0.4-1.0); TOTAL PROTEIN 7.1 g/dL (6.7-8.2)
--- NOTE | 2022-02-25 16:50 | CT Report ---
PROCEDURE: ANGIO HEAD W/WO INDICATIONS: expressive aphasia CONTRAST: IV CONTRAST: Optiray 320 ml: 80 PO CONTRAST: *NO PO CONTRAST TECHNIQUE: Precontrast 4.5 mm thick angled axial sections acquired from the foramen magnum to the vertex. Afte r the administration of intravenous contrast, 1 mm thick sections acquired through the [place]. Postcontrast 4.5 mm thick sections then re-acquired from the foramen magnum to the vertex. 3-di mensional swyinbx-gjwssxhtz-pnpvleezca (MIP) and/or volume rendering reformats were acquired of the c entral intracranial vasculature. For radiation dose reduction, the following was used: automated ex posure control, adjustment of mA and/or kV according to patient size. COMPARISON: None CT head angiogram dated 01/27/2018 FINDINGS: Image quality: Excellent. Anterior circulation: Intracranial internal carotid arteries are normal in size and flow. The flow within the paired anterior cerebral arteries is normal and symmetric. The flow within the middle cer ebral arteries is normal and symmetric. The anterior communicating artery is seen. No aneurysms are seen. Posterior circulation: Visualized portions of the vertebral arteries demonstrate normal caliber, and join to form a normal appearing basilar artery. Flow within the posterior cerebral arteries is norm al and symmetric. No aneurysms are seen. CSF spaces: Ventricles are normal in size and shape. Basal cisterns are patent. No extra-axial flu id collections. Brain: No midline shift. No intracranial bleeds or masses. Molina-white matter interface appears int act. Skull and face: Calvarium and facial bones appear intact, without suspicious lesions. Sinuses: Visualized sinuses and mastoids are clear. IMPRESSION: 1. No hemodynamically significant stenosis, occlusion, or aneurysm. Reviewed by: Laura Willoughby MD on 02/25/2022 4:49 PM PDT Approved by: Laura Willoughby MD on 02/25/2022 4:49 PM PDT Station ID: [id number]
[2022-02-25 16:52] LABS: CALCIUM 9.4 mg/dL (8.5-10.3); POTASSIUM 4.1 mmol/L (3.5-5.0)
--- NOTE | 2022-02-25 16:57 | CT Report ---
PROCEDURE: ANGIO NECK W INDICATIONS: expressive aphasia CONTRAST: IV CONTRAST: Optiray 320 ml: 80 PO CONTRAST: *NO PO CONTRAST TECHNIQUE: After the administration of intravenous contrast, 1.5 mm axial sections acquired from the aortic arch to the [place]. Coronal 3-D maximum intensity projection (MIP) and/or volume rendering ref ormats were then performed. For radiation dose reduction, the following was used: automated exposur e control, adjustment of mA and/or kV according to patient size. COMPARISON: None. FINDINGS: Image quality: Excellent. Carotid system: The great vessels demonstrate a conventional anatomy as they arise from the aortic a rch. There is a proximal right subclavian arterial stent which appears grossly patent. There is an ex tra anatomic bypass graft extending from the proximal aspect of the left common carotid artery toward s the left upper extremity. This appears occluded. The [place] left subclavian artery is not opacified . The origins of the common carotid arteries appear patent. The common carotid arteries demonstrate normal calibers and courses. Dense atheromatous calcifications are present at the bilateral carotid b ulbs. There is approximately 50-69% stenosis at the origin of the right internal carotid artery. Ther e is less than 50% stenosis at the origin of the left internal carotid artery. The more superior port ions internal carotid arteries demonstrate normal caliber and course. Posterior circulation: The origins of the vertebral arteries appear patent. The more superior porti ons of the vertebral arteries demonstrate normal course and caliber. They join to form a normal appe aring basilar artery. Soft tissues: Visualized neck soft tissues demonstrate no suspicious abnormalities. The thyroid is normal in size and there are no incidental findings. Bones: No suspicious bony lesions. Visualized cervical spine appears normally aligned. IMPRESSION: 1. 50-69% stenosis at the origin of the right internal carotid artery. Less than 50% stenosis at the origin of the left internal carotid artery. 2. Extra-anatomic left upper extremity bypass graft originating from the proximal left carotid artery appears occluded. 3. No other stenosis, occlusion, or aneurysm. The estimate of stenosis included in the report of the imaging study was calculated using the NASCET method CLINICAL RECOMMENDATION STATEMENTS: In patients <35 years with an ITN detected on CT, MRI, or extrathyroidal ultrasound, the Committee re commends further evaluation with dedicated thyroid ultrasound if the nodule is "e1 cm and has no susp icious imaging features, and if the patient has normal life expectancy. In patients "e35 years with an ITN detected on CT, MRI, or extrathyroidal ultrasound, the Committee r ecommends further evaluation with dedicated thyroid ultrasound if the nodule is "e1.5 cm and has no s uspicious imaging features, and if the patient has normal life expectancy. (ACR, 2014) Reviewed by: Laura Willoughby MD on 02/25/2022 4:56 PM PDT Approved by: Laura Willoughby MD on 02/25/2022 4:56 PM PDT Station ID: [id number]
[2022-02-25] MEDS ORDERED: ACETAMINOPHEN 325 MG TABLET PO PRN (19:10)
[2022-02-25] MEDS ORDERED: SODIUM CHLORIDE FLUSH 0.9% 10 ML SYRINGE IVP PRN ×2 (19:10→20:03)
[2022-02-25] MEDS ORDERED: ONDANSETRON 4 MG/2 ML VIAL IVP PRN (19:10)
[2022-02-25 20:25] LABS: BASOPHILS # (AUTO) 0.1 10^3/uL (0.0-0.1); BASOPHILS % (AUTO) 0.9 %; EOSINOPHILS # (AUTO) 0.1 10^3/uL (0.0-0.7); EOSINOPHILS % (AUTO) 1.1 %; HGB - HEMOGLOBIN 12.9 g/dL (12.0-16.0); LYMPHOCYTES # (AUTO) 2.6 10^3/uL (1.5-3.5); LYMPHOCYTES % (AUTO) 26.7 %; MEAN CORPUSCULAR HEMOGLOBIN 29.9 pg (27.0-31.0); MEAN CORPUSCULAR HGB CONC 33.9 g/dL (32.0-36.0); MEAN CORPUSCULAR VOLUME 88.2 fL (81.0-99.0); MEAN PLATELET VOLUME 9.6 fL (7.9-10.8); MONOCYTES # (AUTO) 0.8 10^3/uL (0.0-1.0); MONOCYTES % (AUTO) 7.8 %; NEUTROPHILS # (AUTO) 6.1 10^3/uL (1.5-6.6); NEUTROPHILS % (AUTO) 63.1 %; PLT - PLATELET COUNT 366 10^3/uL (130-450); RED BLOOD COUNT 4.31 10^6/uL (4.20-5.40); RED CELL DISTRIBUTION WIDTH 12.6 % (12.0-15.0); WHITE BLOOD COUNT 9.7 x10^3/uL (4.8-10.8)
--- NOTE | 2022-02-25 20:27 | HISTORY & PHYSICAL EXAMINATION ---
Chief Complaint - Chief Complaint Chief Complaint: speech difficulty History of Present Illness - Admitted From Admitted From:: ED - History of Present Illness HPI Comment/Other: pt presented with difficulty with word finding that started this afternoon while out shopping with . pt denies any falls or dizziness but states she has been feeling a bit confused at times over past few days. no fevers or chills or chest pain or SAHNI reported. she sees neurology as outpt for migraine SAHNI, and has h/o giant cell arteritis with residual L arm weakness from that. h/o TIAs but denies CVA in the past. no dysuria or hematuria. pt denes difficulty with swallowing. no facial droop reported. no trouble with walking reported. 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 Dad at age 89 of old age. One brother has had a heart attack. One sister has had an abdominal cancer in the last year and is dwindling at the age of 81. HER-2 children are completely healthy Social History Notes: She was born in [facility]. She an [place] and came to the [facility] 30 years ago. 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 They moved to the [place] 15 years ago. She and her live in their own home. She regards herself is completely independent and still pays the bills, drives a car, cleans house. She never smoked. Rarely drinks alcohol. Has no history of substance abuse. She denies use of cannabis, cocaine, heroin, LSD, methamphetamines. - Substance History Use: Uses substance without health or social issues: NONE - POLST Patient has POLST: Yes POLST Status: Full Code (She would like to be a full code. However, if she has significant disability such as a massive stroke with chronic residual resulting in dependence for her activities of daily living, she would like to be changed to a DO NOT RESUSCITATE.) Meds/Allgy - Home Medications Home Medications: Ambulatory Orders Medication Instructions Recorded Confirmed Citalopram [CeleXA] 10 mg PO DAILY 11/26/13 02/23/21 Atorvastatin Calcium 10 mg PO QPM 01/27/18 02/23/21 Calcium Carbonate/Vitamin D3 1 tab PO DAILY 01/27/18 02/23/21 [Calcium 600-Vit D3 400 Tablet] Lactobacillus Acidophilus 1 cap PO DAILY 01/27/18 02/23/21 [Acidophilus Lactobacilli] Levothyroxine Sodium 88 mcg PO DAILY 01/27/18 02/23/21 Pantoprazole Sodium 40 mg PO DAILY 01/27/18 02/23/21 Propranolol HCl [Propranolol HCl 60 mg PO DAILY 01/27/18 02/23/21 ER] - Allergies Allergies/Adverse Reactions: Allergies Allergy/AdvReac Type Severity Reaction Status Date / Time Penicillins Allergy Severe Rash Verified 02/25/22 15:32 Review of Systems - Other Findings Other Findings: 14 pt review done with positives per hpi; all others reviewed as negative Exam - Vital Signs Vital Signs: Vital Signs x48h Temp Pulse Pulse Resp BP BP Pulse Ox 02/25/22 20:04 36.6 C 75 20 175/89 H 96 02/25/22 17:57 74 19 206/79 H 99 02/25/22 16:30 72 12 160/95 H 95 02/25/22 16:22 74 19 198/74 H 96 02/25/22 15:26 36.7 C 75 16 207/76 H 97 - Physical Exam Comments/Other: gen - aaox3, nad, polite heent - eomi, nc/at, mucosae moist heart - rrr lungs - ctab abd - soft, nt, bsx4 msk - no acute trauma noted, pt able to move all extremities neuro - aaox3, cn II-XII grossly intact, gag not checked Conclusion/Plan - Lab Results Fish Bones: 02/25/22 20:08 02/25/22 20:08 - Other Other Results/Comments: pt with - - TIA with h/o same symptoms much improved / resolved imaging thus far without acute abnl to explain symptoms per tele-neuro --> start plavix and asa, continue statin, check MRI and 2d echo - dysarthria per above --> resolved for now - hyperglycemia check a1c pre-diabetes / t2dm risk factor CVA f/u labs, replete electrolytes, monitor neuro status further orders per clinical course and neuro recommendations
[2022-02-25 20:29] LABS: INR 1.1 (0.8-1.2); PT - PROTHROMBIN TIME 11.8 secs (9.9-12.6)
[2022-02-25 20:30] LABS: ALBUMIN/GLOBULIN RATIO 1.4 (1.0-2.2); BILIRUBIN,TOTAL 0.6 mg/dL (0.2-1.0); CALCIUM 9.1 mg/dL (8.5-10.3); CREATININE 0.8 mg/dL (0.4-1.0); POTASSIUM 3.7 mmol/L (3.5-5.0); TOTAL PROTEIN 6.9 g/dL (6.7-8.2)
[2022-02-25 20:36] LABS: CHOL/HDL RATIO 2.9 (<4.4); CHOLESTEROL 180 mg/dL; HDL CHOLESTEROL 62 mg/dL; LDL CHOLESTEROL,CALCULATED 100 mg/dL; LDL/HDL RATIO 1.6 (<4.4); PARTIAL THROMBOPLASTIN TIME 29.9 secs (24.9-33.3); TRIGLYCERIDES 91 mg/dL; VLDL CHOLESTEROL 18 mg/dL
[2022-02-25 20:52] LABS: ESTIMATED AVERAGE GLUCOSE 108 mg/dL (70-100); HEMOGLOBIN A1c% 5.4 % (4.27-6.07)
[2022-02-25] MEDS ORDERED: ATORVASTATIN 10 MG TABLET PO SCH (21:00)
[2022-02-26] MEDS ORDERED: SODIUM CHLORIDE FLUSH 0.9% 10 ML SYRINGE IVP SCH (01:00)
[2022-02-26] MEDS: SODIUM CHLORIDE FLUSH 0.9% 10 ML SYRINGE IVP SCH ×2 (01:11→09:25)
[2022-02-26] MEDS ORDERED: ASPIRIN 325 MG TABLET PO SCH (08:00)
[2022-02-26] MEDS ORDERED: MULTIVITAMIN TABLET PO SCH (08:00)
[2022-02-26] MEDS ORDERED: ENOXAPARIN 40 MG/0.4 ML SYRINGE SUBQ SCH (09:00)
[2022-02-26] MEDS ORDERED: CITALOPRAM 10 MG TABLET PO SCH (09:00)
[2022-02-26] MEDS ORDERED: ASPIRIN EC 81 MG TABLET PO SCH (09:00)
[2022-02-26] MEDS ORDERED: SACCHAROMYCES BOULARDII 250 MG CAPSULE PO SCH (09:00)
[2022-02-26] MEDS ORDERED: PANTOPRAZOLE 40 MG TABLET PO SCH ×2 (09:00)
[2022-02-26] MEDS ORDERED: LEVOTHYROXINE 88 MCG TABLET PO SCH ×2 (09:00)
[2022-02-26] MEDS ORDERED: PROPRANOLOL ER 60 MG CAPSULE PO SCH (09:00)
[2022-02-26] MEDS ORDERED: CALCIUM CARB (OYSTER SHELL) 500 MG TABLET PO SCH (09:00)
[2022-02-26] MEDS ORDERED: CHOLECALCIFEROL 400 UNIT TABLET PO SCH (09:00)
[2022-02-26] MEDS ORDERED: CLOPIDOGREL 75 MG TABLET PO SCH ×2 (09:00)
--- NOTE | 2022-02-26 14:45 | MRI Report ---
PROCEDURE: Brain W/O INDICATIONS: TIA TECHNIQUE: Noncontrast axial T1 spin echo, axial T2 fast spin echo, sagittal and axial FLAIR, coronal T2 fast sp in echo, axial gradient echo, axial diffusion and ADC through the brain. COMPARISON: CT brain and CTA head and neck 02/25/2022 FINDINGS: Image quality: Excellent. The ventricular system and cortical sulci demonstrate atrophy, consistent for patient's stated age. There are areas of hyperintense T2/FLAIR signal in the periventricular and subcortical white matter. There is no acute intra or extra-axial fluid collection. No acute hemorrhage, mass lesion or midlin e shift. Brainstem is unremarkable. There are no areas of restricted diffusion. Globes are symmetr ical. Sinuses are aerated. Osseous structures are intact. Hyperostosis frontalis is incidentally note d. IMPRESSION: 1. No acute intracranial process. 2. Mild to moderate atrophy and chronic microvascular ischemic changes. Reviewed by: Preeti Lopez MD on 02/26/2022 2:44 PM PDT Approved by: Preeti Lopez MD on 02/26/2022 2:44 PM PDT Station ID: [id number]
--- NOTE | 2022-02-26 15:33 | Ultrasound Report ---
PROCEDURE: Carotid Doppler Complete INDICATIONS: cva TECHNIQUE: Color and pulse Doppler interrogation was performed of both carotid systems, with image documentation and velocity measurements. COMPARISON: Carotid ultrasound 04/02/2021 FINDINGS: Right side: Brachial blood pressure: 155/59 mm Hg. Common carotid artery peak systolic velocity: 83 cm/sec. Internal carotid artery peak systolic velocity: 102 cm/sec. Internal carotid artery end diastolic velocity: 16 cm/sec. External carotid artery peak systolic velocity: 100 cm/sec. ICA/CCA peak systolic ratio: 1.2 . Molina scale imaging description: Moderate plaque at the bifurcation Percent internal carotid artery stenosis: Less than 50% stenosis . Vertebral artery: Flow direction is antegrade. Left side: Brachial blood pressure: 140/69 mm Hg. Common carotid artery peak systolic velocity: 85 cm/sec. Internal carotid artery peak systolic velocity: 84 cm/sec. Internal carotid artery end diastolic velocity: 23 cm/sec. External carotid artery peak systolic velocity: 91 cm/sec. ICA/CCA peak systolic ratio: 1.0 . Molina scale imaging description: Moderate plaque at the bifurcation Percent internal carotid artery stenosis: Less than 50% . Vertebral artery: Flow direction is antegrade. There is a subclavian artery bypass graft noted. It appears occluded, unchanged. There is poor visual ization of the subclavian stent although there is suggestion of stenosis, relatively unchanged. IMPRESSION: Less than 50% stenosis of the internal carotid arteries bilaterally. Subclavian bypass graft appears occluded, unchanged. Poor visualization of subclavian stent although appearing consistent with focal stenosis, relatively unchanged. The estimate of stenosis included in the report of the imaging study was calculated using the NASCET method Reviewed by: Preeti Lopez MD on 02/26/2022 3:31 PM PDT Approved by: Preeti Lopez MD on 02/26/2022 3:31 PM PDT Station ID: [id number]
--- NOTE | 2022-02-26 17:04 | Discharge Plan ---
Discharge Plan Problem Reviewed?: Yes Disposition: Home, Self Care Condition: Stable Diet: Cardiac Activity Restrictions: Activity as Tolerated Shower Restrictions: No Driving Restrictions: Yes (No driving) Health Concerns: You have a history of giant cell arteritis and already have a stent in both subclavian arteries. Your left subclavian is completely blocked, and your right subclavian is still open. You have been gradually having increased problems with memory loss and word finding. You are due to see a neurologist on February 27 for possible dementia. However, while shopping on the day of admission, you started having increased problems with word finding that was very sudden. Confusion was worse. You did not have any fever, chills. No headache. No change in your vision. You had no problems with moving your tongue, or facial droop. In the emergency room they evaluated you as a possible early stroke. All of her studies were negative including a CT of the head, dye angiogram study of the head and neck arteries, MRI of the head, and an ultrasound of your heart called an echocardiogram. All of these showed the same changes you have had from giant cell arteritis and no new findings. Plan of Treatment: 1. The neurologist who consulted on your case feels that you would be a candidate for Plavix AND aspirin. However taking aspirin bothers your stomach and makes you have risk for ulcers. Please discuss with your neurologist about what blood thinner you would use to reduce your risk of stroke. 2. We checked your cholesterol and your triglycerides were 91, cholesterol 180, bad cholesterol of LDL at 100, and good cholesterol of HDL at 62. You are on atorvastatin 10 mg a day and we would continue that. 3. There are other things you can do to reduce your risk of stroke. If you smoke, please stop smoking. If you had diabetes, please control your diabetes. We did check you and your glycosylated hemoglobin was 5.4%. So you do not have diabetes. So the main thing is to control your blood pressure and see if he can get it as close to 120/70 as possible with your doctor and neurologist. While here you were as high as 156/101. Care Goals: Discussion for advance care planning held with . She and he have discussed quality of life issues, and plan for the future. She would like to be at home is much as possible and has long-term care insurance. She will follow through with neurology tomorrow to make sure she is not developing dementia. Assessment: While patient may be having memory loss problems she is alert, oriented, lucid conversationalist and historian. at the bedside and endorses that. No Smoking: If you smoke, Please STOP! Call for help. Follow-up with: Tila Payan PA-C [Primary Care Provider] -
--- NOTE | 2022-02-26 17:15 | DISCHARGE SUMMARY ---
"Discharge Summary Admit Date: 02/25/22 Discharge Date: 02/26/22 Discharging Provider: Angie Preston MD Primary Care Provider: PAPO Mack Code Status: Attempt Resuscitation Condition at Discharge: Stable Discharge Disposition: 01 Home, Self Care - DIAGNOSES Discharge Diagnoses with Status of Each Condition: 1. Stroke symptoms 2. Hypertension 3. History of peptic ulcer disease 4. Hyperlipidemia 5. Peripheral vascular disease due to giant cell arteritis - HPI History of Present Illness: pt presented with difficulty with word finding that started this afternoon while out shopping with . pt denies any falls or dizziness but states she has been feeling a bit confused at times over past few days. no fevers or chills or chest pain or SAHNI reported. she sees neurology as outpt for migraine SAHNI, and has h/o giant cell arteritis with residual L arm weakness from that. h/o TIAs but denies CVA in the past. no dysuria or hematuria. pt denes difficulty with swallowing. no facial droop reported. no trouble with walking reported. 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 Head CT without acute intracranial findings. Chronic microvascular ischemic changes noted. 2. Head and neck CT angiograms had no hemodynamically significant stenosis, occlusion, or aneurysm within the skull. She has 50 to 69% stenosis of the origin of the right internal carotid artery, less than 50% stenosis at the origin of the left carotid. Extra-anatomic left upper extremity bypass graft originating from the proximal left carotid artery appears occluded. No other stenosis or aneurysm. There is a proximal right subclavian arterial stent which appears grossly patent. 3. Brain MRI has no acute intracranial process. Mild to moderate atrophy and chronic microvascular ischemic changes. 4. Carotid Doppler study has less than 50% stenosis of the internal carotids bilaterally. Subclavian bypass graft on the left appears occluded, unchanged from carotid ultrasound April 2021. 5. Echocardiogram has left ventricular systolic function normal with an ejection fraction of 60 to 65%. Impaired relaxation consistent with grade 1 diastolic dysfunction. Right ventricular systolic function normal. No concerning cardiac valve disease noted. - HOSPITAL COURSE Hospital Course: Patient was placed on telemetry and started on aspirin. On the second day she declined taking an aspirin because she has a history of gastritis and she was worried about that. But neurology does recommend a combined platelet inhibitor temporarily. She is due to see a neurologist tomorrow and she will discuss it with him. MRI of the head was negative for acute stroke. Telemetry was without arrhythmias. Echocardiogram showed no shunts, no valvular heart disease. Normal ejection fraction. Angiograms of the head and neck did show that she has a occluded left subclavian stent. She has an open subclavian on the right. This was due to history of giant cell arteritis in the past. On examination temperature was 36.8. Heart rate 58. Blood pressure 147/57. Respirations 18 and she is 96% on room air. She is a 5 foot 4 inches female at 61.5 kg. She was alert, oriented, lucid historian. Occasional forgetfulness for words or questions but would remember on her own without prompting. That is what is worrying her most right now. Advance care planning conversation held. Please refer to separate dictation. Lungs are clear. Regular rate and rhythm. Abdomen soft. Nontender. She was examined earlier in the day. Extremities are without edema and she has no ataxia. She was ambulating in the room without any help. was at the bedside at discharge and was able to participate in questions; all those were answered. I have asked the patient to be followed up by her primary care provider in the next 1 to 2 weeks. And to continue to follow-up with neurology tomorrow. She asked for a copy of her MRI, carotid Doppler, echocardiogram, CT angiogram of the head and neck, and CT of the head. The report copies were given to her and she will take with her to her neurologist. - ALLERGIES Allergies/Adverse Reactions: Allergies Allergy/AdvReac Type Severity Reaction Status Date / Time Penicillins Allergy Severe Rash Verified 02/25/22 15:32 - MEDICATIONS Home Medications: Ambulatory Orders Medication Instructions Recorded Confirmed Atorvastatin Calcium 10 mg PO QPM 01/27/18 02/26/22 Calcium Carbonate/Vitamin D3 1 tab PO DAILY 01/27/18 02/26/22 [Calcium 600-Vit D3 400 Tablet] Levothyroxine Sodium 88 mcg PO QDAC 01/27/18 02/26/22 Pantoprazole Sodium 40 mg PO QDAC 01/27/18 02/26/22 Propranolol HCl [Propranolol HCl 60 mg PO DAILY 01/27/18 02/26/22 ER] Citalopram [CeleXA] 30 mg PO DAILY 02/26/22 02/26/22 Clopidogrel [Plavix] 1 tab PO DAILY 02/26/22 02/26/22 - LABS Result Diagrams: 02/25/22 20:08 02/25/22 20:08"
--- NOTE | 2022-02-26 17:22 | ADVANCE CARE PLANNING NOTE ---
Advance Care Planning - Planning Encounter Date: 02/26/22 Time: 17:19 Purpose: establish care goals Parties in Attendance: patient, , hospitalist, and PA student Virginia Smith. Decisional Capacity of the Patient: alert, oriented, and able to have lucid conversation. Occ forgetful of words or what she meant to ask. - Encounter Subjective/Patient's Story: The patient lives with her , and their own home. She wants us to know that she is definitely has some thought process with regards to advance care planning. She and her are each other's POA's. They have long-term care insurance. On the one hand she still wants to be treated if she has a treatable and reversible illness. If she is still ambulatory, able to feed herself, able to dress herself, and has memory, she still wants us to admit her for such things as sepsis treatment, shock treatment, stroke, heart attack, pneumonia, surgeries, etc. However, if she has an already present severe diminishment in quality of life she does not want us to treat her. If she is bedbound, chair bound, or no longer able to feed or dress herself she regards that is a poor quality of life even if she has intact memory. If she is not chair bound or bedbound but has severe dementia, she does not want to be kept alive. She would prefer for us to make her comfortable and let her go. Her endorses this. He states they have had this conversation. They both believe in a life after and believes that they will go to a good place after they . Objective/Medical Story: pt presented with difficulty with word finding that started this afternoon while out shopping with . pt denies any falls or dizziness but states she has been feeling a bit confused at times over past few days. no fevers or chills or chest pain or SAHNI reported. she sees neurology as outpt for migraine SAHNI, and has h/o giant cell arteritis with residual L arm weakness from that. h/o TIAs but denies CVA in the past. no dysuria or hematuria. pt denes difficulty with swallowing. no facial droop reported. no trouble with walking reported.l= She has been losing her memory, and finding more problems with word finding or forgetting why she was doing something. She is due to see her neurologist February 27 for an opinion. But today was the worst she is ever had and it was fairly acute. 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 MRI head negative. CT angiogram of head and neck negative. CT of head negative. MRI of head negative. The only thing we have found of the stents in her subclavian's for giant cell arteritis. Left stent completely occluded. Right stent open. Goals of Care: She would like to retain her memory, and be independent for as long as possible. If she needs care, she has long-term care insurance and would prefer to stay at home. Plan: She is being discharged today after having strokelike symptoms. She will follow through with neurology tomorrow, primary care provider in the next couple of weeks. She is going to make sure that she discusses her wishes with her 2 sons. She and her have already had conversations about this and will reiterate their wishes to each other again. Code Status: Do Not Attempt Resuscitation Time spent on advance care plannin minutes
[2022-02-26 17:57] VITALS: BP 133/52
== END 2022-02-26 18:20 | disposition home or self-care (01) ==
LOC: ED 15:21 → MS2 19:10
PROVIDERS: ADMIT Student in an Organized Health Care Education/Training Program; ATTEND Specialist
DX: R47.89 Other speech disturbances (principal); R47.1 Dysarthria and anarthria; I10 Essential (primary) hypertension; I73.9 Peripheral vascular disease, unspecified; E78.00 Pure hypercholesterolemia, unspecified; K21.9 Gastro-esophageal reflux disease without esophagitis; H54.7 Unspecified visual loss; H91.90 Unspecified hearing loss, unspecified ear; F32.A Depression, unspecified; R73.03 Prediabetes; R94.31 Abnormal electrocardiogram [ECG] [EKG]; Z20.822 Contact with and (suspected) exposure to COVID-19; Z79.02 Long term (current) use of antithrombotics/antiplatelets; Z79.899 Other long term (current) drug therapy; Z86.73 Personal history of transient ischemic attack (TIA), and cerebral infarction without residual deficits; Z86.79 Personal history of other diseases of the circulatory system; Z88.0 Allergy status to penicillin
CPT/HCPCS: 36415; 70450; 70496; 70498; 70551; 80053; 80061; 83036; 83690; 83735; 84443; 84484; 85025; 85610; 85730; 87635; 93005; 93306; 93880; 96372; 99283; 99285; A9270; G0378; J1650; Q9967; 83721

== ENCOUNTER 2022-04-20 10:16 | Emergency (ER) | payer MEDICARE ==
--- NOTE | 2022-04-20 10:25 | ED Physician Documentation ---
PD HPI FOCAL NEURO - Stated complaint Stated Complaint: RT FACIAL DROOP/NUMB NESS HAND - Chief complaint Chief Complaint: Neuro - History obtained from History obtained from: Patient - History of Present Illness Timing - onset: How many hours ago (1) Timing - duration: Hours (1) Timing - details: Abrupt onset, Still present (improving to mostly gone now, and resolves within few minutes into ED.) Severity of deficit: Mild Weakness: Face, Hand, Right, Other (trouble completing sentences/thoght per her .). No: Leg, Foot Numbness: Face, Hand, Right Associated symptoms: No: Headache, Nausea / vomiting, Syncope, Fall, Head injury, Fever Contributing factors: negative: Anticoagulated, Atrial fibrillation Baseline status: positive: A&OX3, ambulatory, indep Similar symptoms before: Diagnosis (n. prior TIAs x 3-4. Had one lasting about 30 minutes and seen in ER/admitted 2 months ago (Feb 28) with exam, CT angios showing no more than 50% occlusions, normal MRI other than age related, and normal labs. Has been on Plavix since then. No ASA.) Recently seen: Not recently seen Review of Systems Constitutional: denies: Fever, Chills Nose: denies: Rhinorrhea / runny nose, Congestion Throat: denies: Sore throat Cardiac: denies: Chest pain / pressure, Palpitations Respiratory: denies: Dyspnea, Cough GI: denies: Abdominal Pain, Nausea, Vomiting Skin: denies: Rash, Lesions Neurologic: reports: Focal weakness, Difficulty speaking. 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 HEENT: Chronic vision loss, Chronic hearing loss Psych: Depression Musculoskeletal: Other Derm: None - Past Surgical History Past Surgical History: Yes General: Colonoscopy Ortho: Shoulder arthroplasty Cardiovascular: Vascular surgery - Present Medications Home Medications: Ambulatory Orders Medication Instructions Recorded Confirmed Atorvastatin Calcium 10 mg PO QPM 01/27/18 02/26/22 Calcium Carbonate/Vitamin D3 1 tab PO DAILY 01/27/18 02/26/22 [Calcium 600-Vit D3 400 Tablet] Levothyroxine Sodium 88 mcg PO QDAC 01/27/18 02/26/22 Pantoprazole Sodium 40 mg PO QDAC 01/27/18 02/26/22 Propranolol HCl [Propranolol HCl 60 mg PO DAILY 01/27/18 02/26/22 ER] Citalopram [CeleXA] 30 mg PO DAILY 02/26/22 02/26/22 Clopidogrel [Plavix] 1 tab PO DAILY 02/26/22 02/26/22 - Allergies Allergies/Adverse Reactions: Allergies Allergy/AdvReac Type Severity Reaction Status Date / Time Penicillins Allergy Severe Rash Verified 04/20/22 10:24 - Social History Does the pt smoke?: No Smoking Status: Never smoker Does the pt drink ETOH?: No Does the pt have substance abuse?: No - Immunizations Immunizations are current?: Yes - POLST Patient has POLST: Yes POLST Status: Full Code (She would like to be a full code. However, if she has significant disability such as a massive stroke with chronic residual resulting in dependence for her activities of daily living, she would like to be changed to a DO NOT RESUSCITATE.) PD ED PE NORMAL - Vitals Vital signs reviewed: Yes - General General: Alert and oriented X 3, No acute distress, Well developed/nourished - HEENT HEENT: Pharynx benign - Neck Neck: Supple, no meningeal sign, No adenopathy, No bruit - Cardiac Cardiac: RRR, No murmur - Respiratory Respiratory: No respiratory distress, Clear bilaterally - Abdomen Abdomen: Soft, Non tender - Back Back: No CVA TTP - Derm Derm: Normal color, Warm and dry - Extremities Extremities: Normal ROM s pain, No edema, No calf tenderness / cord - Neuro Neuro: Alert and oriented X 3, concrete puddler 2-12 intact, No motor deficit, No sensory deficit, Normal speech Eye Opening: Spontaneous Motor: Obeys Commands Verbal: Oriented GCS Score: 15 - Psych Psych: Normal mood NIHSS - Level of Consciousness Level of consciousness: (0) Alert, Keenly responsive LOC Questions: (0) Answers both Q's correct LOC Commands: (0) Performs both correctly - Gaze Best Gaze: (0) Normal - Visual Visual: (0) No loss - Facial Palsy Facial Palsy: (0) Normal, symmetrical movement - Motor Arms (both separate) Motor Arm (right): (1) Drift Motor Arm (left): (0) No drift - Motor Legs (both separate) Motor Leg (right): (1) Drift Motor Leg (left): (0) No drift - Limb Ataxia Limb Ataxia: (0) Absent - Sensory Sensory: (0) Normal - Best Language Best Language: (0) No aphasia - Dysarthria Dysarthria: (0) Normal - Extinction and Inattention (formally neg Extinction and inattention: (0) No abnormality - Total Score/Results Total Score/Result: 2 Results - Vitals Vitals: Vital Signs - 24 hr 04/20/22 04/20/22 04/20/22 10:19 11:53 12:00 Temperature 35.8 C L Heart Rate 81 60 60 Respiratory 16 12 12 Rate Blood Pressure 182/80 H 158/87 H 158/87 H O2 Saturation 99 97 98 Oxygen O2 Source Room air - EKG (time done) 10:33 Rate: Rate (enter#) (69) Rhythm: NSR [place]: Normal Intervals: Normal SD QRS: Normal Ischemia: Normal ST segments. No: ST elevation c/w ischemia, ST depression - Labs Labs: Laboratory Tests 04/20/22 04/20/22 04/20/22 10:25 10:25 10:25 WBC 7.8 RBC 4.46 Hgb 12.8 Hct 39.8 MCV 89.2 MCH 28.7 MCHC 32.2 RDW 12.5 Plt Count 377 MPV 9.9 Neut # (Auto) 4.4 Lymph # (Auto) 2.4 [place] # (Auto) 0.7 Eos # (Auto) 0.2 Baso # (Auto) 0.1 Absolute Nucleated RBC 0.00 Nucleated RBC % 0.0 ESR 16 Sodium 138 Potassium 4.1 Chloride 103 Carbon Dioxide 24 Anion Gap 11.0 BUN 17 Creatinine 0.8 Estimated GFR (MDRD) 69 L Glucose 82 POC Whole Bld Glucose Calcium 9.0 Magnesium 2.3 Total Bilirubin 0.3 AST 18 ALT 16 Alkaline Phosphatase 46 Total Protein 7.1 Albumin 4.3 Globulin 2.8 Albumin/Globulin Ratio 1.5 Lipase 33 04/20/22 11:40 WBC RBC Hgb Hct MCV MCH MCHC RDW Plt Count MPV Neut # (Auto) Lymph # (Auto) [place] # (Auto) Eos # (Auto) Baso # (Auto) Absolute Nucleated RBC Nucleated RBC % ESR Sodium Potassium Chloride Carbon Dioxide Anion Gap BUN Creatinine Estimated GFR (MDRD) Glucose POC Whole Bld Glucose 85 Calcium Magnesium Total Bilirubin AST ALT Alkaline Phosphatase Total Protein Albumin Globulin Albumin/Globulin Ratio Lipase - Rads (name of study) head cT Radiology: Prelim report reviewed (no acute process), See rad report head/neck angios Radiology: Prelim report reviewed (no greater than 50% ICA stenoses bilaterally. No mass effect. no ICH. ), See rad report PD MEDICAL DECISION MAKING - ED course Complexity details: reviewed old records (from 02/28/22 wiht similar symptoms), considered differential (sounds tIA but prolonged symptoms of about 30 min. 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 No indication for tPA given resolution of symptoms. He would suggest dual antiplatelet therapy with adding aspirin to her Plavix and also increasing the atorvastatin. Continue other usual medicines.) ED course: The patient's ABCD 2 score is 4 so consideration of observation versus home with close follow-up. The patient would prefer going home. She and her state they live close and are comfortable going there in the have had several episodes like this so are comfortable watching for symptoms. Departure - Departure Disposition: Home, Self Care Clinical Impression: TIA (transient ischemic attack) Condition: Stable Record reviewed to determine appropriate education?: Yes Instructions: ED Transient Ischemic Attack Follow-Up: Tila Payan PA-C [Primary Care Provider] - Comments: Your CT scans did not show any change from those in January. I did talk with the stroke neurologist on-call through our hospital today. He suggested that you resume an aspirin 81 mg daily in addition to continuing your Plavix for now until further follow-up with your neurologist in [place]. He also suggested increasing your atorvastatin from 10 mg to 20 mg or even up to 40 mg. I would initially just go to 20 mg. Continue your other usual medications. Contact your your neurologist in [place] in this coming week (Friday) and see if they wish any other changes or further evaluation. Discharge Date/Time: 04/20/22 12:35
[2022-04-20 11:03] LABS: BASOPHILS # (AUTO) 0.1 10^3/uL (0.0-0.1); BASOPHILS % (AUTO) 1.2 %; EOSINOPHILS # (AUTO) 0.2 10^3/uL (0.0-0.7); EOSINOPHILS % (AUTO) 2.4 %; HCT - HEMATOCRIT 39.8 % (37.0-47.0); HGB - HEMOGLOBIN 12.8 g/dL (12.0-16.0); LYMPHOCYTES # (AUTO) 2.4 10^3/uL (1.5-3.5); LYMPHOCYTES % (AUTO) 30.8 %; MEAN CORPUSCULAR HEMOGLOBIN 28.7 pg (27.0-31.0); MEAN CORPUSCULAR HGB CONC 32.2 g/dL (32.0-36.0); MEAN CORPUSCULAR VOLUME 89.2 fL (81.0-99.0); MEAN PLATELET VOLUME 9.9 fL (7.9-10.8); MONOCYTES # (AUTO) 0.7 10^3/uL (0.0-1.0); NEUTROPHILS # (AUTO) 4.4 10^3/uL (1.5-6.6); NEUTROPHILS % (AUTO) 56.1 %; PLT - PLATELET COUNT 377 10^3/uL (130-450); RED BLOOD COUNT 4.46 10^6/uL (4.20-5.40); RED CELL DISTRIBUTION WIDTH 12.5 % (12.0-15.0); WHITE BLOOD COUNT 7.8 x10^3/uL (4.8-10.8)
--- NOTE | 2022-04-20 11:13 | CT Report ---
PROCEDURE: CT brain without contrast. Stroke protocol. INDICATIONS: right side weakness this AM. similar 2 d [id number] TECHNIQUE: Noncontrast 4.5 mm thick angled axial sections acquired from the foramen magnum to the vertex, with c oronal reformats. For radiation dose reduction, the following was used: automated exposure control, adjustment of mA and/or kV according to patient size. COMPARISON: FINDINGS: Image quality: Excellent. CSF spaces: Basal cisterns are patent. No extra-axial fluid collections. Ventricles are normal in size and shape. Brain: No midline shift. No intracranial masses or hemorrhage. Molina-white matter interface is norm al. Moderate atrophy and multifocal white matter chronic ischemic change Skull and face: Calvarium and visualized facial bones are intact, without suspicious lesions. Sinuses: Visualized sinuses and mastoids are clear. IMPRESSION: Moderate atrophy and white matter chronic ischemic change without intracranial hemorrhag e or mass effect. This study fulfills neurological imaging criteria for inclusion or exclusion of acute stroke therapie s based on available published neurological imaging guidelines. Note: Critical results were discussed with Dr. Stoner at 10:10 AM [place] time on 04/20/2022 Reviewed by: Thaddeus Rosenberg MD on 04/20/2022 10:12 AM [facility] Approved by: Thaddeus Rosenberg MD on 04/20/2022 10:12 AM [facility] Station ID: [id number]
[2022-04-20 11:14] LABS: ALBUMIN 4.3 g/dL (3.2-5.5); ALBUMIN/GLOBULIN RATIO 1.5 (1.0-2.2); BILIRUBIN,TOTAL 0.3 mg/dL (0.2-1.0); CREATININE 0.8 mg/dL (0.4-1.0); MAGNESIUM 2.3 mg/dL (1.7-2.8); POTASSIUM 4.1 mmol/L (3.5-5.0); TOTAL PROTEIN 7.1 g/dL (6.7-8.2)
--- NOTE | 2022-04-20 11:16 | CT Report ---
PROCEDURE: CT angiogram brain with contrast INDICATIONS: r sided facial droop CONTRAST: omni 300 80ml TECHNIQUE: After the administration of intravenous contrast, 1 mm thick sections acquired through th e [place]. Postcontrast 4.5 mm thick sections then re-acquired from the foramen magnum to t he vertex. For radiation dose reduction, the following was used: automated exposure control, adjust ment of mA and/or kV according to patient size. COMPARISON: 02/25/2022 FINDINGS: Image quality: Excellent. Anterior circulation: Intracranial internal carotid arteries are normal in size and flow. The flow within the paired anterior cerebral arteries is normal and symmetric. The flow within the middle cer ebral arteries is normal and symmetric. The anterior communicating artery is seen. No aneurysms are seen. Posterior circulation: Focal moderate stenosis involving the intradural left vertebral artery remains unchanged from the prior exam. Basilar artery unremarkable. The right vertebral artery dominance. F low within the posterior cerebral arteries is normal and symmetric. No aneurysms are seen. CSF spaces: Ventricles are normal in size and shape. Basal cisterns are patent. No extra-axial flu id collections. Brain: No midline shift. No intracranial bleeds or masses. Molina-white matter interface appears int act. Skull and face: Calvarium and facial bones appear intact, without suspicious lesions. Sinuses: Visualized sinuses and mastoids are clear. 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 No evidence of large vessel occlusion, aneurysm or vascular malformation Reviewed by: Thaddeus Rosenberg MD on 04/20/2022 10:15 AM [facility] Approved by: Thaddeus Rosenberg MD on 04/20/2022 10:15 AM [facility] Station ID: [id number]
--- NOTE | 2022-04-20 11:22 | CT Report ---
PROCEDURE: CT angiogram neck with contrast INDICATIONS: r sided facial droop, right side weak CONTRAST: omni 300 80ml TECHNIQUE: After the administration of intravenous contrast, 1.5 mm axial sections acquired from the aortic arch to the [place]. Coronal maximum intensity projection (MIP) . For radiation dose reduction , the following was used: automated exposure control, adjustment of mA and/or kV according to patien t size. COMPARISON: None. FINDINGS: Image quality: Excellent. Carotid system: The great vessels demonstrate a conventional anatomy as they arise from the aortic a rc. The origins of the common carotid arteries appear patent. The common carotid arteries demonstr ate normal calibers and courses. 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 Vascular plaque in both p roximal internal carotid arteries is noted resulting in less than 50% stenosis on bilaterally utilizi ng NASCET criteria. Stent noted in the right subclavian artery. Collateral arterial vessels noted in the right subclavian soft tissues as well. Posterior circulation: The origins of the vertebral arteries appear patent. Right vertebral artery d ominance Soft tissues: Visualized neck soft tissues demonstrate no suspicious abnormalities. The thyroid is normal in size and there are no incidental findings. Bones: No suspicious bony lesions. Visualized cervical spine appears normally aligned. Degenerati ve disc disease and arthropathy results in moderate stenosis at C4-5 and C5-6 IMPRESSION: 1. Stable CT angiogram the neck. Atherosclerotic plaque in both proximal internal carotid arteries re sults in less than 50% stenosis. 2. Thrombosed left subclavian graft. Patent right subclavian stent. Both unchanged from the prior. The estimate of stenosis included in the report of the imaging study was calculated using the NASCET method Reviewed by: Thaddeus Rosenberg MD on 04/20/2022 10:20 AM [facility] Approved by: Thaddeus Rosenberg MD on 04/20/2022 10:20 AM [facility] Station ID: [id number]
[2022-04-20] MEDS ORDERED: iohexoL-300 100 ML VIAL ONE (11:29)
[2022-04-20 12:20] VITALS: BP 158/87
[2022-04-20] MEDS ORDERED: iohexoL-300 100 ML VIAL IVP ONE (12:20)
[2022-04-20] MEDS ORDERED: ASPIRIN CHEW 81 MG TABLET PO STA (12:22)
== END 2022-04-20 12:35 | disposition home or self-care (01) ==
LOC: ED 10:16
DX: G45.9 Transient cerebral ischemic attack, unspecified (principal)
CPT/HCPCS: 36415; 70450; 70496; 70498; 80053; 83690; 83735; 85025; 85651; 93005; 99284; A9270; Q9967

== ENCOUNTER 2022-07-06 22:13 | Emergency (ER) | payer MEDICARE ==
--- NOTE | 2022-07-06 22:26 | ED Physician Documentation ---
PD HPI FOCAL NEURO - Stated complaint Stated Complaint: POSSIBLE STROKE - Chief complaint Chief Complaint: Neuro - History obtained from History obtained from: Patient, Family ( of patient) - History of Present Illness Timing - onset: Enter time (20:00) Timing - details: Abrupt onset Severity of deficit: Moderate Contributing factors: negative: Anticoagulated Baseline status: positive: A&OX3, ambulatory, indep Similar symptoms before: Diagnosis (TIA) - Additional information Additional information: HPI is from patient's , in the ED at bedside. Patient is unable to provide consistent information regarding HPI/review of systems due to expressive aphasia. Patient's says that at 8 PM tonight, he noticed patient was having significant difficulty with word finding, as well as many of the words and phr ases she was saying being gibberish or incomprehensible. He says they were driving home from a restaurant, and that he last was conversing with her at 7 PM. The patient's indicates to me that the patient has had many similar previous episodes (sudden onset of expressive aphasia), but they have invariably resolved on their own, typically within minutes. The patient's longest such episode was April 2022 at which time she was admitted to [facility]. The expressive aphasia did indeed again resolved spontaneously, and the stroke work- up, which included CTH, CTA head and neck, and MRI of the brain, did not show any abnormalities to explain the etiology of the symptoms. 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 HEENT: Chronic vision loss, Chronic hearing loss Psych: Depression Musculoskeletal: Other Derm: None - Past Surgical History Past Surgical History: Yes General: Colonoscopy Ortho: Shoulder arthroplasty Cardiovascular: Vascular surgery - Present Medications Home Medications: Ambulatory Orders Medication Instructions Recorded Confirmed Atorvastatin Calcium 10 mg PO QPM 01/27/18 07/06/22 Calcium Carbonate/Vitamin D3 1 tab PO DAILY 01/27/18 07/06/22 [Calcium 600-Vit D3 400 Tablet] Levothyroxine Sodium 88 mcg PO QDAC 01/27/18 07/06/22 Pantoprazole Sodium 40 mg PO QDAC 01/27/18 07/06/22 Propranolol HCl [Propranolol HCl 60 mg PO DAILY 01/27/18 07/06/22 ER] Citalopram [CeleXA] 30 mg PO DAILY 02/26/22 07/06/22 Clopidogrel [Plavix] 1 tab PO DAILY 02/26/22 07/06/22 Alprazolam [Xanax] 0.25 mg PO DAILY PRN 07/06/22 07/06/22 - Allergies Allergies/Adverse Reactions: Allergies Allergy/AdvReac Type Severity Reaction Status Date / Time Penicillins Allergy Severe Rash Verified 07/06/22 22:32 - Social History Does the pt smoke?: No Smoking Status: Never smoker Does the pt drink ETOH?: No Does the pt have substance abuse?: No - Immunizations Immunizations are current?: Yes - POLST Patient has POLST: Yes POLST Status: Full Code (She would like to be a full code. However, if she has significant disability such as a massive stroke with chronic residual resulting in dependence for her activities of daily living, she would like to be changed to a DO NOT RESUSCITATE.) PD ED PE NORMAL - Vitals Vital signs reviewed: Yes - General General: No acute distress, Well developed/nourished, Other (Patient is awake, alert, makes good eye contact, follows commands quickly and accurately. She is able to say some words intelligibly, has difficulty with word finding with most answers, and some of her answers are unintelligible or gibberish. ) - HEENT HEENT: PERRL, EOMI - Neck Neck: Supple, no meningeal sign - Cardiac Cardiac: RRR, No murmur - Respiratory Respiratory: No respiratory distress, Clear bilaterally - Abdomen Abdomen: Soft, Non tender - Derm Derm: Normal color, Warm and dry - Neuro Eye Opening: Spontaneous Motor: Obeys Commands NIHSS - Level of Consciousness Level of consciousness: (0) Alert, Keenly responsive LOC Questions: (2) Answers neither correct LOC Commands: (0) Performs both correctly - Gaze Best Gaze: (0) Normal - Visual Visual: (0) No loss - Facial Palsy Facial Palsy: (0) Normal, symmetrical movement - Motor Arms (both separate) Motor Arm (right): (0) No drift Motor Arm (left): (0) No drift - Motor Legs (both separate) Motor Leg (right): (0) No drift Motor Leg (left): (0) No drift - Limb Ataxia Limb Ataxia: (0) Absent - Sensory Sensory: (0) Normal - Best Language Best Language: (2) Severe aphasia - Dysarthria Dysarthria: (0) Normal - Extinction and Inattention (formally neg Extinction and inattention: (0) No abnormality - Total Score/Results Total Score/Result: 4 Results - Vitals Vitals: Vital Signs - 24 hr 07/06/22 07/06/22 07/06/22 22:17 22:29 22:55 Temperature 36.6 C Heart Rate 79 74 Respiratory 23 15 Rate Blood Pressure 134/104 H 134/104 H 126/91 H O2 Saturation 97 94 07/06/22 07/07/22 07/07/22 23:25 00:00 00:30 Temperature Heart Rate 84 100 95 Respiratory 19 24 22 Rate Blood Pressure 177/137 H 166/124 H 120/107 H O2 Saturation 97 96 98 07/07/22 07/07/22 07/07/22 01:00 01:27 07:59 Temperature 36.9 C Heart Rate 92 97 93 Respiratory 20 20 18 Rate Blood Pressure 124/70 143/83 H 96/68 O2 Saturation 98 97 95 07/07/22 07/07/22 07/07/22 08:07 08:51 09:18 Temperature Heart Rate 92 88 91 Respiratory 18 18 18 Rate Blood Pressure 90/71 86/66 L 105/73 O2 Saturation 95 95 95 07/07/22 07/07/22 07/07/22 09:50 10:15 10:53 Temperature Heart Rate 84 85 83 Respiratory 18 18 18 Rate Blood Pressure 102/74 108/82 H 130/113 H O2 Saturation 99 98 98 07/07/22 07/07/22 07/07/22 11:22 11:52 12:20 Temperature Heart Rate 83 76 76 Respiratory 18 20 18 Rate Blood Pressure 104/86 H 123/76 80/70 L O2 Saturation 100 99 99 Oxygen O2 Source Room air - EKG (time done) No standard instances Rate: Rate (enter#) (77) Rhythm: NSR [place]: Normal Intervals: Normal [place] QRS: Normal Ischemia: Normal ST segments, Q waves (III, aVF) - Labs Labs: Laboratory Tests 07/06/22 07/06/22 07/06/22 22:24 22:32 23:01 WBC 9.7 RBC 4.18 L Hgb 12.2 Hct 37.0 MCV 88.5 MCH 29.2 MCHC 33.0 RDW 12.6 Plt Count 329 MPV 9.9 Neut # (Auto) 5.9 Lymph # (Auto) 2.6 [place] # (Auto) 0.9 Eos # (Auto) 0.2 Baso # (Auto) 0.1 Absolute Nucleated RBC 0.00 Nucleated RBC % 0.0 PT INR APTT Sodium Potassium Chloride Carbon Dioxide Anion Gap BUN Creatinine Estimated GFR (MDRD) Glucose POC Whole Bld Glucose 102 H Calcium Magnesium Total Bilirubin AST ALT Alkaline Phosphatase Total Protein Albumin Globulin Albumin/Globulin Ratio Lipase Urine Color Urine Clarity Urine pH Ur Specific [place] Urine Protein Urine Glucose (UA) Urine Ketones Urine Occult Blood Urine Nitrite Urine Bilirubin Urine Urobilinogen Ur Leukocyte Esterase Urine RBC Urine WBC Ur Squamous Epith Cells Urine Bacteria Ur Microscopic Review Urine Culture Comments SARS-CoV-2 (PCR) NOT DETECTED 07/06/22 07/06/22 07/07/22 23:01 23:01 00:51 WBC RBC Hgb Hct MCV MCH MCHC RDW Plt Count MPV Neut # (Auto) Lymph # (Auto) [place] # (Auto) Eos # (Auto) Baso # (Auto) Absolute Nucleated RBC Nucleated RBC % PT 11.4 INR 1.0 APTT 28.7 Sodium 138 Potassium 3.9 Chloride 103 Carbon Dioxide 24 Anion Gap 11.0 BUN 17 Creatinine 0.8 Estimated GFR (MDRD) 69 L Glucose 113 H POC Whole Bld Glucose Calcium 9.1 Magnesium Total Bilirubin 0.4 AST 17 ALT 13 Alkaline Phosphatase 46 Total Protein 6.7 Albumin 3.8 Globulin 2.9 Albumin/Globulin Ratio 1.3 Lipase 33 Urine Color YELLOW Urine Clarity CLEAR Urine pH 7.5 Ur Specific [place] 1.010 Urine Protein NEGATIVE Urine Glucose (UA) NEGATIVE Urine Ketones NEGATIVE Urine Occult Blood NEGATIVE Urine Nitrite NEGATIVE Urine Bilirubin NEGATIVE Urine Urobilinogen 0.2 (NORMAL) Ur Leukocyte Esterase SMALL H Urine RBC 0-5 Urine WBC 4-5 Ur Squamous Epith Cells MOD Squamous H Urine Bacteria Few Ur Microscopic Review INDICATED Urine Culture Comments NOT INDICATED SARS-CoV-2 (PCR) 07/07/22 07/07/22 09:12 09:12 WBC 11.3 H RBC 4.32 Hgb 12.5 Hct 37.9 MCV 87.7 MCH 28.9 MCHC 33.0 RDW 12.7 Plt Count 327 MPV 9.4 Neut # (Auto) 8.6 H Lymph # (Auto) 1.8 [place] # (Auto) 0.8 Eos # (Auto) 0.0 Baso # (Auto) 0.1 Absolute Nucleated RBC 0.00 Nucleated RBC % 0.0 PT INR APTT Sodium 135 Potassium 4.1 Chloride 101 Carbon Dioxide 23 Anion Gap 11.0 BUN 15 Creatinine 0.8 Estimated GFR (MDRD) 69 L Glucose 121 H POC Whole Bld Glucose Calcium 9.0 Magnesium 1.9 Total Bilirubin AST ALT Alkaline Phosphatase Total Protein Albumin Globulin Albumin/Globulin Ratio Lipase Urine Color Urine Clarity Urine pH Ur Specific [place] Urine Protein Urine Glucose (UA) Urine Ketones Urine Occult Blood Urine Nitrite Urine Bilirubin Urine Urobilinogen Ur Leukocyte Esterase Urine RBC Urine WBC Ur Squamous Epith Cells Urine Bacteria Ur Microscopic Review Urine Culture Comments SARS-CoV-2 (PCR) - Rads (name of study) CT Radiology: Prelim report reviewed, Discussed with rads, EMP read indepedently, See rad report CTA head Radiology: Prelim report reviewed, See rad report CTA neck Radiology: Prelim report reviewed, See rad report PD Medical Decision Making - ED course Complexity details: reviewed old records, reviewed results, re-evaluated patient, considered differential, d/w patient, d/w family ED course: Tests ordered and results reviewed by me: CBC, ER abdominal panel, PT, PTT, EKG, CT head, CTA head, CTA neck. There are no concerning nor diagnostic findings on any of the blood tests performed. There are no diagnostic nor concerning findings on the CT head nor the CTA of the head. The radiologist interpretation of the CTA neck is "asymmetric right greater than left calcific atherosclerotic stenosis measuring approximately 70% in the right and 50% on the left.". Telestroke consult obtained. Dr. Rincon (neurologist for telestroke services) evaluated the patient and then discussed his recommendations with me. He recommends 325 mg p.o. aspirin daily with first dose to be given now, atorvastatin 80 mg p.o. daily with first dose to be given now. He says that he would usually also recommend clopidogrel, but that the patient's indicates that patient has a history of some sort of adverse reaction to this medication. Dr. Lew agrees that patient is not a candidate for thrombolytics. His recommendation is to admit patient for observation and completion of stroke work-up to include MR of the brain and consider transthoracic echo. Care of patient signed out to the oncoming ED physician (Dr. Stoner) , as there are no beds available at [facility] during my shift and there is no indication at this time for emergent transfer to another facility. - Critical Care Time(min): 45 Time Includes: Direct patient care, Review records, Reassess patient, Document care, Coordinate care, Medical consult, See progress note Data interpretation: Labs, Pulse ox, See progress note Procedures included in critical care time: See progress note Procedures excluded from critical care time: See progress note - TPA CVA checklist Inclusion crititeria: positive: Sig neuro deficit, CT no bleed. negative: Onset know < 4.5 hr Absolute contraindications if 3-4.5 hr: positive: Age > 80 Departure - Departure Disposition: ED Place in Observation Clinical Impression: Aphasia Cerebrovascular accident (CVA) Qualifiers: CVA mechanism: unspecified Qualified Code(s): I63.9 - Cerebral infarction, unspecified Condition: Stable
--- NOTE | 2022-07-06 23:05 | CT Report ---
PROCEDURE: Head W/O Stroke Protocol INDICATIONS: dysarthria TECHNIQUE: Noncontrast 4.5 mm thick angled axial sections acquired from the foramen magnum to the vertex, with c oronal reformats. For radiation dose reduction, the following was used: automated exposure control, adjustment of mA and/or kV according to patient size. COMPARISON: Prior similar CT 04/20/2022. FINDINGS: Image quality: Excellent. CSF spaces: Basal cisterns are patent. No extra-axial fluid collections. Ventricles are normal in size and shape. Brain: No midline shift. No intracranial masses or hemorrhage. Molina-white matter interface is norm al. Skull and face: Calvarium and visualized facial bones are intact, without suspicious lesions. Sinuses: Visualized sinuses and mastoids are clear. IMPRESSION: Normal for age, source of current symptoms is not seen. This study fulfills neurological imaging criteria for inclusion or exclusion of acute stroke therapie s based on available published neurological imaging guidelines. Reviewed by: Clement Santiago MD on 07/06/2022 11:03 PM PST Approved by: Clement Santiago MD on 07/06/2022 11:03 PM PST Station ID: [id number]
[2022-07-06 23:09] LABS: BASOPHILS # (AUTO) 0.1 10^3/uL (0.0-0.1); BASOPHILS % (AUTO) 0.8 %; EOSINOPHILS # (AUTO) 0.2 10^3/uL (0.0-0.7); EOSINOPHILS % (AUTO) 1.7 %; HGB - HEMOGLOBIN 12.2 g/dL (12.0-16.0); LYMPHOCYTES # (AUTO) 2.6 10^3/uL (1.5-3.5); LYMPHOCYTES % (AUTO) 26.7 %; MEAN CORPUSCULAR HEMOGLOBIN 29.2 pg (27.0-31.0); MEAN CORPUSCULAR VOLUME 88.5 fL (81.0-99.0); MEAN PLATELET VOLUME 9.9 fL (7.9-10.8); MONOCYTES # (AUTO) 0.9 10^3/uL (0.0-1.0); MONOCYTES % (AUTO) 9.2 %; NEUTROPHILS # (AUTO) 5.9 10^3/uL (1.5-6.6); NEUTROPHILS % (AUTO) 61.2 %; PLT - PLATELET COUNT 329 10^3/uL (130-450); RED BLOOD COUNT 4.18 10^6/uL (4.20-5.40); RED CELL DISTRIBUTION WIDTH 12.6 % (12.0-15.0); WHITE BLOOD COUNT 9.7 x10^3/uL (4.8-10.8)
[2022-07-06 23:15] LABS: PT - PROTHROMBIN TIME 11.4 secs (9.9-12.6)
[2022-07-06 23:22] LABS: ALBUMIN 3.8 g/dL (3.2-5.5); ALBUMIN/GLOBULIN RATIO 1.3 (1.0-2.2); BILIRUBIN,TOTAL 0.4 mg/dL (0.2-1.0); CALCIUM 9.1 mg/dL (8.5-10.3); CREATININE 0.8 mg/dL (0.4-1.0); PARTIAL THROMBOPLASTIN TIME 28.7 secs (24.9-33.3); POTASSIUM 3.9 mmol/L (3.5-5.0); TOTAL PROTEIN 6.7 g/dL (6.7-8.2)
[2022-07-06] MEDS ORDERED: iohexoL-300 100 ML VIAL ONE (23:47)
[2022-07-06] MEDS ORDERED: MORPHINE 2 MG/ML CARPUJECT IVP STA (23:58)
[2022-07-07] MEDS ORDERED: ASPIRIN CHEW 81 MG TABLET PO STA
[2022-07-07] MEDS ORDERED: iohexoL-300 100 ML VIAL IVP ONE (00:31)
--- NOTE | 2022-07-07 00:50 | CT Report ---
PROCEDURE: ANGIO HEAD W/WO INDICATIONS: expressive aphasia CONTRAST: 100 ml OMNI 300 TECHNIQUE: Precontrast 4.5 mm thick angled axial sections acquired from the foramen magnum to the vertex. Afte r the administration of intravenous contrast, 1 mm thick sections acquired through the [place] of [place] is. Postcontrast 4.5 mm thick sections then re-acquired from the foramen magnum to the vertex. 3-di mensional pyhasvr-ihuwrrgas-jipkabpyfy (MIP) and/or volume rendering reformats were acquired of the c entral intracranial vasculature. For radiation dose reduction, the following was used: automated ex posure control, adjustment of mA and/or kV according to patient size. COMPARISON: 04/20/[address] FINDINGS: Image quality: Excellent. Anterior circulation: Intracranial internal carotid arteries are normal in size and flow. The flow within the paired anterior cerebral arteries is normal and symmetric. The flow within the middle cer ebral arteries is normal and symmetric. The anterior communicating artery is seen. No aneurysms are seen. Posterior circulation: Visualized portions of the vertebral arteries demonstrate asymmetric caliber, left vertebral dominant, and join to form a normal appearing basilar artery. Flow within the shoulder pad molder ior cerebral arteries is normal and symmetric. No aneurysms are seen. CSF spaces: Ventricles are normal in size and shape. Basal cisterns are patent. No extra-axial flu id collections. Brain: No midline shift. No intracranial bleeds or masses. Molina-white matter interface appears int act. Skull and face: Calvarium and facial bones appear intact, without suspicious lesions. Sinuses: Visualized sinuses and mastoids are clear. IMPRESSION: Normal intracranial CT angiogram, source of current symptoms is not seen. Reviewed by: Clement Santiago MD on 07/07/2022 1:00 AM PST Approved by: Clement Santiago MD on 07/07/2022 1:00 AM PST Station ID: [id number]
--- NOTE | 2022-07-07 00:55 | CT Report ---
PROCEDURE: ANGIO NECK W INDICATIONS: expressive aphasia CONTRAST: 100 ml OMNI 300 TECHNIQUE: After the administration of intravenous contrast, 1.5 mm axial sections acquired from the aortic arch to the [place] of [place]. Coronal 3-D maximum intensity projection (MIP) and/or volume rendering ref ormats were then performed. For radiation dose reduction, the following was used: automated exposur e control, adjustment of mA and/or kV according to patient size. COMPARISON: None. FINDINGS: Image quality: Excellent. Carotid system: The great vessels demonstrate a conventional anatomy as they arise from the aortic a rch. The origins of the common carotid arteries appear patent. The common carotid arteries demonstr ate normal calibers and courses. The bifurcation regions appear abnormal bilaterally, involvement by asymmetric right greater than left atherosclerotic calcific plaquing with approximately a 70% stenos is at the origin of the right proximal internal carotid artery and approximately 50% stenosis on the left in this same area.. The internal carotid arteries demonstrate normal caliber and course. Posterior circulation: The origins of the vertebral arteries appear patent. The more superior porti ons of the vertebral arteries demonstrate normal course and caliber. They join to form a normal appe aring basilar artery. Soft tissues: Visualized neck soft tissues demonstrate no suspicious abnormalities. The thyroid is normal in size and there are no incidental findings. Bones: No suspicious bony lesions. Visualized cervical spine appears normally aligned. IMPRESSION: Abnormal cervical MR angiogram, with asymmetric right greater than left calcific atherosclerotic sten osis measuring approximately 70% on the right and 50% on the left. The estimate of stenosis included in the report of the imaging study was calculated using the NASCET method CLINICAL RECOMMENDATION STATEMENTS: In patients <35 years with an ITN detected on CT, MRI, or extrathyroidal ultrasound, the Committee re commends further evaluation with dedicated thyroid ultrasound if the nodule is "e1 cm and has no susp icious imaging features, and if the patient has normal life expectancy. In patients "e35 years with an ITN detected on CT, MRI, or extrathyroidal ultrasound, the Committee r ecommends further evaluation with dedicated thyroid ultrasound if the nodule is "e1.5 cm and has no s uspicious imaging features, and if the patient has normal life expectancy. (ACR, 2014) Reviewed by: Clement Santiago MD on 07/07/2022 1:05 AM PST Approved by: Clement Santiago MD on 07/07/2022 1:05 AM [facility] Station ID: [id number]
[2022-07-07] MEDS ORDERED: ATORVASTATIN 40 MG TABLET ONE (03:39)
[2022-07-07 08:06] LABS: BILIRUBIN,URINE NEGATIVE (NEGATIVE); GLUCOSE, URINE (UA) NEGATIVE (NEGATIVE); KETONES,URINE (UA) NEGATIVE (NEGATIVE); LEUKOCYTE ESTERASE, URINE SMALL (NEGATIVE); NITRITE,URINE NEGATIVE (NEGATIVE); OCCULT BLOOD,URINE NEGATIVE (NEGATIVE); PH,URINE 7.5 PH (5.0-7.5); PROTEIN,URINE NEGATIVE (NEGATIVE); UROBILINOGEN,URINE 0.2 (NORMAL) E.U./dL (NORMAL)
[2022-07-07] MEDS ORDERED: SODIUM CHLORIDE 0.9% 1,000 ML IV STA (09:04)
[2022-07-07] MEDS ORDERED: DEXTROSE 5%-0.45% NACL 1,000 ML IV STA (09:05)
--- NOTE | 2022-07-07 09:08 | ED Physician Documentation ---
ED Addendum - Addendum Addendum: 07/07/22 09:07 The patient reportedly rested comfortably overnight. Her blood pressure was noted to be trending down and be mildly hypotensive this morning. Note is made of no fluid intake and I presume she is just volume depleted. We will give a fluid bolus and see how that improves. I will add a maintenance IV fluid as well. I will order recheck of her blood count and electrolytes. We can check a fingerstick sugar as well to ensure no other obvious problem at the moment. No obvious bleeding source. She is afebrile so not considering septic at this point but will watch for trends and vital signs.
[2022-07-07 09:18] LABS: BASOPHILS # (AUTO) 0.1 10^3/uL (0.0-0.1); BASOPHILS % (AUTO) 0.5 %; EOSINOPHILS % (AUTO) 0.1 %; HCT - HEMATOCRIT 37.9 % (37.0-47.0); HGB - HEMOGLOBIN 12.5 g/dL (12.0-16.0); LYMPHOCYTES # (AUTO) 1.8 10^3/uL (1.5-3.5); LYMPHOCYTES % (AUTO) 16.2 %; MEAN CORPUSCULAR HEMOGLOBIN 28.9 pg (27.0-31.0); MEAN CORPUSCULAR VOLUME 87.7 fL (81.0-99.0); MEAN PLATELET VOLUME 9.4 fL (7.9-10.8); MONOCYTES # (AUTO) 0.8 10^3/uL (0.0-1.0); NEUTROPHILS # (AUTO) 8.6 10^3/uL (1.5-6.6); NEUTROPHILS % (AUTO) 75.8 %; PLT - PLATELET COUNT 327 10^3/uL (130-450); RED BLOOD COUNT 4.32 10^6/uL (4.20-5.40); RED CELL DISTRIBUTION WIDTH 12.7 % (12.0-15.0); WHITE BLOOD COUNT 11.3 x10^3/uL (4.8-10.8)
[2022-07-07 09:26] LABS: CREATININE 0.8 mg/dL (0.4-1.0); MAGNESIUM 1.9 mg/dL (1.7-2.8); POTASSIUM 4.1 mmol/L (3.5-5.0)
[2022-07-07 10:03] LABS: CLARITY,URINE CLEAR (CLEAR)
[2022-07-07 10:04] LABS: BACTERIA,URINE Few /HPF (None Seen); RBC,URINE 0-5 /HPF (0-5); SQUAMOUS EPITHELIAL CELL,UR MOD Squamous (<= Few)
[2022-07-07] MEDS ORDERED: ONDANSETRON 4 MG/2 ML VIAL IVP PRN (11:54)
[2022-07-07] MEDS: ACETAMINOPHEN 500 MG TABLET PO PRN (16:07)
[2022-07-07] MEDS ORDERED: ATORVASTATIN 40 MG TABLET PO SCH (21:00)
[2022-07-08] MEDS: ACETAMINOPHEN 500 MG TABLET PO PRN (03:55)
[2022-07-08 05:29] LABS: BASOPHILS # (AUTO) 0.1 10^3/uL (0.0-0.1); BASOPHILS % (AUTO) 0.8 %; EOSINOPHILS # (AUTO) 0.1 10^3/uL (0.0-0.7); EOSINOPHILS % (AUTO) 0.9 %; HCT - HEMATOCRIT 39.1 % (37.0-47.0); HGB - HEMOGLOBIN 12.8 g/dL (12.0-16.0); LYMPHOCYTES % (AUTO) 25.8 %; MEAN CORPUSCULAR HEMOGLOBIN 29.1 pg (27.0-31.0); MEAN CORPUSCULAR HGB CONC 32.7 g/dL (32.0-36.0); MEAN CORPUSCULAR VOLUME 88.9 fL (81.0-99.0); MEAN PLATELET VOLUME 9.6 fL (7.9-10.8); MONOCYTES # (AUTO) 0.7 10^3/uL (0.0-1.0); MONOCYTES % (AUTO) 9.1 %; NEUTROPHILS # (AUTO) 4.8 10^3/uL (1.5-6.6); NEUTROPHILS % (AUTO) 63.1 %; PLT - PLATELET COUNT 310 10^3/uL (130-450); RED CELL DISTRIBUTION WIDTH 12.7 % (12.0-15.0); WHITE BLOOD COUNT 7.6 x10^3/uL (4.8-10.8)
[2022-07-08 05:41] LABS: CALCIUM 9.3 mg/dL (8.5-10.3); CREATININE 0.7 mg/dL (0.4-1.0)
[2022-07-08] MEDS ORDERED: PANTOPRAZOLE 40 MG TABLET PO SCH (07:00)
[2022-07-08] MEDS ORDERED: CLOPIDOGREL 75 MG TABLET PO SCH (09:00)
[2022-07-08] MEDS ORDERED: ASPIRIN CHEW 81 MG TABLET PO SCH (09:00)
--- NOTE | 2022-07-08 12:28 | MRI Report ---
PROCEDURE: BRAIN WO INDICATIONS: cva sx TECHNIQUE: Noncontrast axial T1 spin echo, axial T2 fast spin echo, sagittal and axial FLAIR, coronal T2 fast sp in echo, axial gradient echo, axial diffusion and ADC through the brain. COMPARISON: Brain MRI dated 02/26/2022, stroke protocol CT head dated 07/06/2022, CT angiogram of the h ead and neck dated 07/07/2022. FINDINGS: Image quality: Excellent. CSF Spaces: Basal cisterns are patent. No extra-axial fluid collections. Ventricles are normal in size and shape. Brain: No intracranial masses or hemorrhage. [place]/white matter interface is normal. Brainstem appe ars normal. Diffusion-weighted images demonstrate no acute ischemic insult. No chronic ischemic ins ults. Age-appropriate volume loss and age appropriate mild to moderate small vessel ischemic change. Normal intravascular flow voids are present. Skull and face: Calvarium has normal marrow signal. Orbits appear normal. Sinuses: Sinuses and mastoids are clear. IMPRESSION: 1. Age-appropriate volume loss and small vessel ischemic change. 2. No evidence of acute stroke, hemorrhage, or mass. Reviewed by: Abebe Travis MD on 07/08/2022 12:26 PM PST Approved by: Abebe Travis MD on 07/08/2022 12:26 PM PST Station ID: [id number]
--- NOTE | 2022-07-08 14:18 | ED Physician Documentation ---
ED Addendum - Addendum Addendum: 07/08/22 14:14 The patient is doing well this morning. She states her speech ability has cleared to normal last night and into this morning. Her aphasia has improved. She denies any other focal deficits. She states she does have history of general weakness and some incoordination with walking. Physical therapy is here to evaluate that and they do recommend that she could benefit from a walker just for general balance. As I saw her walking, it did not look like ataxia per se but just general balance. The patient did have her brain MRI this morning which did not show any acute strokes bleeds or acute abnormality. Also no other focal abnormalities such as MS or tumors. At this point it does seem similar to an episode she had last April with brief episode of expressive aphasia that cleared. At that point it was considered a TIA. She had been on aspirin and Plavix but seem to have some general stomach side effects etc. that her primary care thought was related to the Plavix. So she would prefer not to take that. We could have her just double up on her aspirin to 2 baby aspirin's daily. The patient's symptoms this time lasted nearly 2 days so unusual for TIA. However there is no other accounting for the symptoms such as stroke, MS, electrolyte problems etc. Her CTA had shown some mild stenoses on both sides of her carotids at 50 and 75%. These would be likely considered nonflow limiting at this point. However that she should follow-up with her primary care for subsequent follow-up imaging at an interval to ensure no worsening. The patient was looking to see whether she had a walker she could borrow from neighbors otherwise we will provide her with 1 here. She will be discharged at this point and she is comfortable with that as has her in the room with her. Disposition: The patient discharged home in stable condition. Diagnoses: 1. Expressive aphasia, acute, resolved 2. Presumed TIA 3. Partial carotid stenoses at 50 to 75%
[2022-07-08 17:11] VITALS: BP 165/85
== END 2022-07-08 14:51 | disposition home or self-care (01) ==
LOC: ED 22:13
DX: I63.9 Cerebral infarction, unspecified (principal); I65.29 Occlusion and stenosis of unspecified carotid artery; I10 Essential (primary) hypertension
CPT/HCPCS: 36415; 70450; 70496; 70498; 70551; 80048; 80053; 81001; 83690; 83735; 85025; 85610; 85730; 87635; 93005; 96361; 96374; 99284; 99291; A9270; Q9967; 81003; 87086

== ENCOUNTER 2022-10-14 08:00 | Outpatient (CLI) | payer MEDICARE | END 2022-10-14 23:59 | disposition home or self-care (01) | LOC: LAB.N 08:00 | PROVIDERS: ATTEND Physician Assistant Medical | DX: R07.0 Pain in throat (principal); Z20.822 Contact with and (suspected) exposure to COVID-19 ==

== ENCOUNTER 2022-11-09 15:58 | Emergency (ER) | payer MEDICARE ==
--- NOTE | 2022-11-09 16:29 | ED Physician Documentation ---
PD HPI UPPER EXT INJURY - Stated complaint Stated Complaint: FALL/L WRIST PX - Chief complaint Chief Complaint: Trauma Ext - History obtained from History obtained from: Patient - Additonal information Additional information: She was chasing after her dog about an hour ago and tripped and fell. She hit her head and injured her left, nondominant wrist. Took Tylenol prior to arrival which is sufficient for her pain. No other injuries. No loss of consciousness. She does have a mild headache. She is on Plavix. 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 HEENT: Chronic vision loss, Chronic hearing loss Psych: Depression Musculoskeletal: Other Derm: None - Past Surgical History Past Surgical History: Yes General: Colonoscopy Ortho: Shoulder arthroplasty Cardiovascular: Vascular surgery - Present Medications Home Medications: Ambulatory Orders Medication Instructions Recorded Confirmed Atorvastatin Calcium 10 mg PO QPM 01/27/18 07/06/22 Calcium Carbonate/Vitamin D3 1 tab PO DAILY 01/27/18 07/06/22 [Calcium 600-Vit D3 400 Tablet] Levothyroxine Sodium 88 mcg PO QDAC 01/27/18 07/06/22 Pantoprazole Sodium 40 mg PO QDAC 01/27/18 07/06/22 Propranolol HCl [Propranolol HCl 60 mg PO DAILY 01/27/18 07/06/22 ER] Citalopram [CeleXA] 30 mg PO DAILY 02/26/22 07/06/22 Clopidogrel [Plavix] 1 tab PO DAILY 02/26/22 07/06/22 Alprazolam [Xanax] 0.25 mg PO DAILY PRN 07/06/22 07/06/22 - Allergies Allergies/Adverse Reactions: Allergies Allergy/AdvReac Type Severity Reaction Status Date / Time Penicillins Allergy Severe Rash Verified 11/09/22 16:10 - Social History Does the pt smoke?: No Smoking Status: Never smoker Does the pt drink ETOH?: No Does the pt have substance abuse?: No - Immunizations Immunizations are current?: Yes - POLST Patient has POLST: Yes POLST Status: Full Code (She would like to be a full code. However, if she has significant disability such as a massive stroke with chronic residual resulting in dependence for her activities of daily living, she would like to be changed to a DO NOT RESUSCITATE.) PD ED PE NORMAL - Vitals Vital signs reviewed: Yes - General General: Alert and oriented X 3, No acute distress - HEENT HEENT: PERRL, EOMI - Neck Neck: Supple, no meningeal sign, No bony TTP - Derm Derm: Normal color, Warm and dry - Extremities Extremities: Other (Mild tenderness of the dorsal distal wrist without deformity. Mildly limited range of motion due to pain. No neurovascular c ompromise in the left hand.) - Neuro Neuro: Alert and oriented X 3, Normal speech - Psych Psych: Normal mood, Normal affect Results - Vitals Vitals: Vital Signs - 24 hr 11/09/22 11/09/22 16:05 17:25 Temperature 36.0 C L 36.7 C Heart Rate 65 58 L Respiratory 16 16 Rate Blood Pressure 150/74 H 158/87 H O2 Saturation 99 18 L Oxygen O2 Source Room air - Rads (name of study) CT of the head and cervical spine Relevant Findings:: Final report received, EMP independent interpretation of test X-ray left wrist without fracture. She does have osteopenia. Relevant Findings:: Final report received, EMP independent interpretation of test PD Medical Decision Making - ED course ED course: 82-year-old woman on Plavix had a trip and fall injuring her left wrist but also hit her head with mild headache. CT imaging of the head and neck was negative for acute findings and the x-ray of the left wrist was negative as well and she is placed into a Velcro wrist splint. Departure - Departure Disposition: 01 Home, Self Care Clinical Impression: Head injury Qualifiers: Encounter type: initial encounter Qualified Code(s): S09.90XA - Unspecified injury of head, initial encounter Left wrist sprain Qualifiers: Encounter type: initial encounter Qualified Code(s): S63.502A - Unspecified sprain of left wrist, initial encounter Condition: Good Record reviewed to determine appropriate education?: Yes Instructions: ED Sprain Wrist Comments: Tylenol as needed per package instructions for pain. You can ice it and splint and elevate the wrist as well. Recheck with your physician if not better in a week, return for new or worsening symptoms. Discharge Date/Time: 11/09/22 17:28
--- NOTE | 2022-11-09 17:03 | XRAY Report ---
PROCEDURE: Wrist 4 View LT INDICATIONS: wrist inj TECHNIQUE: 4 views of the wrist were acquired. COMPARISON: None. FINDINGS: Bones: No fractures or dislocations. No suspicious bony lesions. Generalized decreased osseous mine ralization Soft tissues: No suspicious soft tissue calcifications or masses. IMPRESSION: Osteopenia without fracture Reviewed by: Thaddeus Rosenberg MD on 11/09/2022 4:02 PM AKDT Approved by: Thaddeus Rosenberg MD on 11/09/2022 4:02 PM AKDT Station ID: [id number]
--- NOTE | 2022-11-09 17:09 | CT Report ---
PROCEDURE: CT cervical spine without contrast INDICATIONS: Trauma, pain TECHNIQUE: Noncontrast 3 mm thick sections acquired from the skull base to the T4 level. Sagittal and coronal r eformats were then constructed. For radiation dose reduction, the following was used: automated exp osure control, adjustment of mA and/or kV according to patient size. COMPARISON: None. FINDINGS: Image quality: Excellent. Bones: No fractures or dislocations. Visualized superior ribs are intact. Mid cervical spine disc space narrowing with hypertrophic facet joints present. Craniovertebral relationships normal Soft tissues: Prevertebral soft tissues are normal in thickness. No paravertebral hematomas. No ap ical pneumothoraces. IMPRESSION: Degenerative disc disease and arthropathy without fracture or traumatic malalignment Reviewed by: Thaddeus Rosenberg MD on 11/09/2022 4:08 PM AKROX Approved by: Thaddeus Rosenberg MD on 11/09/2022 4:08 PM AKROX Station ID: [id number]
--- NOTE | 2022-11-09 17:13 | CT Report ---
PROCEDURE: CT brain without contrast INDICATIONS: Trauma, pain TECHNIQUE: Noncontrast 4.5 mm thick angled axial sections acquired from the foramen magnum to the vertex. For r adiation dose reduction, the following was used: automated exposure control, adjustment of mA and/or kV according to patient size. COMPARISON: 07/06/2022 FINDINGS: Image quality: Excellent. CSF spaces: Basal cisterns are patent. No extra-axial fluid collections. Ventricles are normal in size and shape. Brain: No midline shift. No intracranial masses or hemorrhage. Molina-white matter interface is norm al. Skull and face: Calvarium and visualized facial bones are intact, without suspicious lesions. Hyper ostosis Sinuses: Visualized sinuses and mastoids are clear. IMPRESSION: Mild atrophy and chronic ischemic change without intracranial hemorrhage or mass effect Reviewed by: Thaddeus Rosenberg MD on 11/09/2022 4:11 PM AKROX Approved by: Thaddeus Rosenberg MD on 11/09/2022 4:11 PM AKDT Station ID: [id number]
[2022-11-09 17:30] VITALS: BP 158/87
== END 2022-11-09 17:28 | disposition home or self-care (01) ==
LOC: ED 15:58
DX: S09.90XA Unspecified injury of head, initial encounter (principal); S63.502A Unspecified sprain of left wrist, initial encounter; W01.0XXA Fall on same level from slipping, tripping and stumbling without subsequent striking against object, initial encounter; Y93.02 Activity, running; Z79.01 Long term (current) use of anticoagulants
CPT/HCPCS: 99283; 99284

== ENCOUNTER 2022-12-06 11:44 | Outpatient (CLI) | payer MEDICARE ==
[2022-12-06 12:25] LABS: ALBUMIN 4.1 g/dL (3.2-5.5); ALBUMIN/GLOBULIN RATIO 1.3 (1.0-2.2); ALKALINE PHOSPHATASE 64 IU/L (42-121); ALT ALANINE AMINOTRANSFERASE 16 IU/L (10-60); AST ASPARTATE AMINOTRANSFERASE 19 IU/L (10-42); BILIRUBIN,TOTAL 0.8 mg/dL (0.2-1.0); BUN - BLOOD UREA NITROGEN 19 mg/dL (6-20); CARBON DIOXIDE - CO2 21 mmol/L (21-32); CHLORIDE 108 mmol/L (101-111); CHOL/HDL RATIO 2.4 (<4.4); CHOLESTEROL 144 mg/dL; CREATININE 0.9 mg/dL (0.4-1.0); GFR - MDRD 60 (>89); GLUCOSE 106 mg/dL (70-100); HDL CHOLESTEROL 59 mg/dL; LDL CHOLESTEROL,CALCULATED 54 mg/dL; LDL/HDL RATIO 0.9 (<4.4); POTASSIUM 3.6 mmol/L (3.5-5.0); SODIUM 137 mmol/L (135-145); TOTAL PROTEIN 7.3 g/dL (6.7-8.2); TRIGLYCERIDES 155 mg/dL; VLDL CHOLESTEROL 31 mg/dL
[2022-12-06 12:34] LABS: THYROID STIMULATING HORMONE 0.4 uIU/mL (0.34-5.60)
== END 2022-12-06 11:45 | disposition home or self-care (01) ==
LOC: LAB 11:44
PROVIDERS: ATTEND Physician Assistant Medical
DX: E78.5 Hyperlipidemia, unspecified (principal); E03.9 Hypothyroidism, unspecified
CPT/HCPCS: 36415; 80053; 80061; 83721; 84443

== ENCOUNTER 2023-01-30 19:11 | Outpatient (CLI) | payer MEDICARE ==
--- NOTE | 2023-01-31 17:08 | Ultrasound Report ---
PROCEDURE: Head or Neck Soft Tissue INDICATIONS: DYSPHAGIA TECHNIQUE: Real-time scanning was performed of the thyroid gland, with image documentation. COMPARISON: 05/01/2010 FINDINGS: Right: Thyroid lobe measures 3.1 x 0.8 x 1.2 cm, and is homogeneous in echotexture. Left: Thyroid lobe measures 2.3 x 0.7 x 0.9 cm, and is homogenous in echotexture. Isthmus: 2 mm thick. Scattered predominantly subcentimeter lymph nodes are present. The largest measures 1.3 cm in the lef t neck level 2 in short axis. IMPRESSION: Bilateral lymph nodes largest measuring 1.3 cm in short axis. Interval follow-up is recommended to do cument resolution. Thyroid gland is unremarkable. Reviewed by: Preeti Lopez MD on 01/31/2023 5:06 PM PDT Approved by: Preeti Lopez MD on 01/31/2023 5:06 PM PDT Station ID: [id number]
== END 2023-01-30 19:12 | disposition home or self-care (01) ==
LOC: DI 19:11
PROVIDERS: ATTEND Physician Assistant Medical
DX: R13.10 Dysphagia, unspecified (principal)

== ENCOUNTER 2023-07-10 18:30 | Emergency (ER) | payer MEDICARE ==
[2023-07-10 18:50] VITALS: BP 147/70; O2SAT 100
--- NOTE | 2023-07-10 19:04 | ED Physician Documentation ---
History of Present Illness - Stated complaint Stated Complaint: FEEDING TUBE - Chief complaint Chief Complaint: General - History obtained from History obtained from: Patient - Additonal information Additional information: Recent diagnosis of stage I esophageal cancer, getting her treatment at [facility]. She has had a G-tube for about 2 months now and for last few days has been worried that it is inflamed and on more sensitive than normal. No fevers. 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 HEENT: Chronic vision loss, Chronic hearing loss Psych: Depression Musculoskeletal: Other Derm: None - Past Surgical History Past Surgical History: Yes General: Colonoscopy Ortho: Shoulder arthroplasty Cardiovascular: Vascular surgery - Present Medications Home Medications: Ambulatory Orders Medication Instructions Recorded Confirmed Atorvastatin Calcium 10 mg PO QPM 01/27/18 04/01/23 Levothyroxine Sodium 88 mcg PO QDAC 01/27/18 04/01/23 Pantoprazole Sodium 40 mg PO QDAC 01/27/18 04/01/23 Citalopram [CeleXA] 30 mg PO DAILY 02/26/22 04/01/23 Clopidogrel [Plavix] 1 tab PO DAILY 02/26/22 04/01/23 busPIRone [Buspar] 10 mg PO BID PRN 02/28/23 04/01/23 Sucralfate [Carafate] 1 gm PO ACHS #60 tablet 04/01/23 Topiramate [Topamax] 25 mg PO BID 04/01/23 04/01/23 cephALEXin [Keflex] 500 mg PO Q6H #28 cap 07/10/23 - Allergies Allergies/Adverse Reactions: Allergies Allergy/AdvReac Type Severity Reaction Status Date / Time Penicillins Allergy Severe Rash Verified 07/10/23 18:45 - Social History Does the pt smoke?: No Smoking Status: Never smoker Does the pt drink ETOH?: No Does the pt have substance abuse?: No - Immunizations Immunizations are current?: Yes - POLST Patient has POLST: Yes POLST Status: Full Code (She would like to be a full code. However, if she has significant disability such as a massive stroke with chronic residual resulting in dependence for her activities of daily living, she would like to be changed to a DO NOT RESUSCITATE.) PD ED PE NORMAL - Vitals Vital signs reviewed: Yes - General General: Alert and oriented X 3, No acute distress - Abdomen Abdomen: Normal bowel sounds, Soft, Non tender, Other (Her G-tube site actually looks very good with only minimal inflammation surrounding it, no cellulitis.) - Neuro Neuro: Alert and oriented X 3, Normal speech Eye Opening: Spontaneous Motor: Obeys Commands Verbal: Oriented GCS Score: 15 - Psych Psych: Normal mood, Normal affect Results - Vitals Vitals: Vital Signs - 24 hr 07/10/23 18:37 Temperature 36.9 C Heart Rate 93 Respiratory 18 Rate Blood Pressure 147/70 H O2 Saturation 100 Oxygen O2 Source Room air PD Medical Decision Making - ED course ED course: Her G-tube was examined, and Actually looks very good. She is worried about early infection. This point I doubt that but seems reasonable to give her some watch and wait antibiotics if he were to get more red which it is only minimally so right now. Departure - Departure Disposition: 01 Home, Self Care Clinical Impression: Attention to G-tube Condition: Good Record reviewed to determine appropriate education?: Yes Prescriptions: cephALEXin [Keflex] 500 mg PO Q6H #28 cap Comments: As discussed, at this point your G-tube site actually looks pretty good to me without an obvious infection. That said out of an abundance of caution I am giving you a "watch and wait prescription for antibiotics which I sent to [facility] in [place]. If you were to develop redness spreading at all you should go ahead and fill and start the antibiotics. Return for new or worsening symptoms. Reasonable to have a recheck with your primary physician on Friday regardless.
== END 2023-07-10 19:38 | disposition home or self-care (01) ==
LOC: ED 18:30
DX: K94.20 Gastrostomy complication, unspecified (principal); I10 Essential (primary) hypertension
CPT/HCPCS: 99282; 99283